=== PATIENT | female | born 1980 | race Caucasian/White ===

== ENCOUNTER 2017-05-30 05:11 | Emergency (ER) | payer BC ==
[2017-05-30 05:24] VITALS: BP 107/64
--- NOTE | 2017-05-30 05:44 | EDM.PDOC ---
ED HPI GENERAL MEDICAL PROBLEM - General Chief Complaint: Bite:Animal, Insect Stated Complaint: DOG BITE YESTERDAY Time Seen by Provider: 05/30/17 05:22 Source of Information: Reports: Patient History Limitations: Reports: No Limitations - History of Present Illness INITIAL COMMENTS - FREE TEXT/NARRATIVE: This is a 36-year-old female. She was seen at the occupational medicine clinic today due to a dog bite. She has bites to her left hand her right hand and also her left cheek. The other bites appear to be doing well and do not appear to be infected however the right middle finger she had 2 puncture wounds at the DIP joint on the dorsal and one on the volar surface that now appear to be infected. She has redness of that right middle finger and tenderness and she comes to the ER for evaluation. Right Middle 3-Middle finger Pain Score (Numeric/FACES): 7 - Related Data Allergies Allergy/AdvReac Type Severity Reaction Status Date / Time cephalexin monohydrate Allergy Intermediate Hives Verified 11/02/15 16:57 [From Keflex] Penicillins Allergy Intermediate Hives Verified 11/02/15 16:57 Home Meds: Home Meds Albuterol [Ventolin HFA] 2 puff INH Q4H PRN 01/17/15 [History] Budesonide/Formoterol [Symbicort 160-4.5 MCG] 1 puff PO BID PRN 01/17/15 [ History] Ciprofloxacin HCl [Cipro] 500 mg PO BID #14 tablet 05/30/17 [Rx] Clindamycin HCl 300 mg PO TID #21 capsule 05/30/17 [Rx] Cyclobenzaprine HCl [Cyclobenzaprine HCl] 10 mg PO Q6H PRN 05/30/17 [History] DULoxetine HCl [Duloxetine HCl] 60 mg PO DAILY 05/30/17 [History] Diazepam [Valium] 5 mg PO BEDTIME PRN 05/30/17 [History] traMADol HCl [Tramadol HCl] 50 mg PO Q6H PRN 05/30/17 [History] Past Medical History Respiratory History: Reports: Asthma Musculoskeletal History: Reports: Other (See Below) Other Musculoskeletal History: hip dysplasia - Past Surgical History Musculoskeletal Surgical History: Reports: Hip Replacement, Other (See Below) Other Musculoskeletal Surgeries/Procedures:: foot sx Social & Family History - Tobacco Use Smoking Status *Q: Never Smoker Second Hand Smoke Exposure: No - Recreational Drug Use Recreational Drug Use: No - Living Situation & Occupation Living situation: Reports: , Alone Occupation: Employed ED ROS GENERAL - Review of Systems Review Of Systems: See Below Constitutional: Denies: Fever, Chills HEENT: Reports: No Symptoms Respiratory: Reports: No Symptoms Cardiovascular: Reports: No Symptoms Endocrine: Reports: No Symptoms GI/Abdominal: Reports: No Symptoms : Reports: No Symptoms Musculoskeletal: Reports: Other (As per history of present illness) Skin: Reports: Other (As per history of present illness) Neurological: Reports: No Symptoms Psychiatric: Reports: No Symptoms Hematologic/Lymphatic: Reports: No Symptoms ED EXAM, ANIMAL BITE - Physical Exam Exam: See Below Exam Limited By: No Limitations General Appearance: Alert, WD/WN, No Apparent Distress Eye Exam: Bilateral Eye: Normal Inspection Ears: Normal External Exam Nose: Normal Inspection Throat/Mouth: Normal Inspection, Normal Lips, Normal Voice, Other (She has a symmetrical dog bite to the left cheek noted that does not appear to be infected ) Head: Normocephalic Neck: Supple Respiratory/Chest: No Respiratory Distress Back Exam: Full Range of Motion Extremities: Other (The left hand she has multiple dog bites that do not appear to be infected at this time, in the right hand the middle finger she has a puncture wound on the dorsal surface at the DIP joint and a puncture wound at the DIP joint on the volar surface and this is the finger that's inflamed and slightly swollen, due to the swelling she can't bend her DIP joint very well but she can bend her IP joint and MP joint though is somewhat swollen and tender there does not appear to be any tenosynovitis at this time) Neurological: Alert, Oriented Psychiatric: Normal Affect, Normal Mood Skin Exam: Normal Color Course - Vital Signs Last Recorded V/S: Last Vital Signs Temp 97.6 F 05/30/17 05:21 Pulse 71 05/30/17 05:21 Resp 16 05/30/17 05:21 BP 107/64 05/30/17 05:21 Pulse Ox 100 05/30/17 05:21 - Orders/Labs/Meds Meds: Medications Discontinued Medications Generic Name Dose Route Start Last Admin Trade Name Freq PRN Reason Stop Dose Admin Clindamycin HCl 300 mg 05/30/17 05:45 05/30/17 05:51 Cleocin PO 05/30/17 05:46 300 mg ONETIME ONE Administration Levofloxacin 500 mg 05/30/17 05:45 05/30/17 05:51 Levaquin PO 05/30/17 05:46 500 mg ONETIME ONE Administration - Re-Assessments/Exams Free Text/Narrative Re-Assessment/Exam: 05/30/17 05:53 Patient is started on tramadol and took Aleve tonight for the soreness in her finger. I'll provide the initial dose of clindamycin and fluoroquinolone as suggested by the [facility] antibiotic guide since the patient is allergic to penicillins. Departure - Departure Time of Disposition: 05:54 Disposition: Home, Self-Care 01 Condition: Good Clinical Impression: Puncture wound of right middle finger with complication, Cellulitis of right middle finger Dog bite of right hand Qualifiers: Encounter type: initial encounter Qualified Code(s): S61.451A - Open bite of right hand, initial encounter; W54.0XXA - Bitten by dog, initial encounter; W54.0XXA - Bitten by dog, initial encounter - Discharge Information Prescriptions: Ciprofloxacin HCl [Cipro] 500 mg PO BID #14 tablet Clindamycin HCl 300 mg PO TID #21 capsule Instructions: Animal Bite, [id number] Referrals: Gianna Freeman, RESIDENT PROGRAMS ASSISTANT [Primary Care Provider] - Forms: ED Department Discharge Additional Instructions: Get the antibiotics today from the pharmacy, also get some probiotics to take along with the antibiotics so they doesn't hurt your gut bacteria and just asked the pharmacist what is the best probiotics and how to take them, continue with your tramadol and the Aleve to help with the soreness of the finger, you may use heat to the finger if it makes it feel better, try to keep it elevated to ease up the throbbing, follow-up with the occupational medicine clinic on Thursday for recheck, if there's marked worsening of your symptoms or you run a fever greater than 102 return to the ER for recheck
[2017-05-30] MEDS ORDERED: Levofloxacin 250 MG Tab PO ONE (05:45)
[2017-05-30] MEDS ORDERED: Clindamycin HCl 150 MG Cap PO ONE (05:45)
== END 2017-05-30 06:05 | disposition home or self-care (01) ==
LOC: JD.ED 05:11
DX: S61.451A Open bite of right hand, initial encounter (principal); S61.232A Puncture wound without foreign body of right middle finger without damage to nail, initial encounter; L03.011 Cellulitis of right finger; Z88.0 Allergy status to penicillin; Z88.6 Allergy status to analgesic agent; Z79.899 Other long term (current) drug therapy; W54.0XXA Bitten by dog, initial encounter
CPT/HCPCS: 99283; A9270

== ENCOUNTER 2017-12-06 13:45 | Emergency (ER) | payer BC ==
[2017-12-06] MEDS ORDERED: LORazepam 2 MG/ML SDV IVPUSH ONE (14:24)
[2017-12-06] MEDS ORDERED: HYDROmorphone 0.5 MG/0.5 ML SYRINGE IVPUSH ONE ×2 (14:24→15:45)
[2017-12-06] MEDS ORDERED: Sodium Chloride 0.9% 10 ML Syringe FLUSH PRN (14:24)
--- NOTE | 2017-12-06 15:03 | EDM.PDOC ---
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 Her Hcg levels the last 10 days have been dropping. Her US about 10 days ago did not show heart activity. mild intermitant discomfort the last few days, became quite severe low mid pelvic the last 2 to 3 hours. has had very slight spotting the last few days. No chest or upper abd pain. Lower Pelvic Pain Score (Numeric/FACES): 7 - Related Data Allergies Allergy/AdvReac Type Severity Reaction Status Date / Time cephalexin monohydrate Allergy Intermediate Hives Verified 12/06/17 13:59 [From Keflex] Penicillins Allergy Intermediate Hives Verified 12/06/17 13:59 Home Meds: Home Meds Albuterol [Ventolin HFA] 2 puff INH Q4H PRN 01/17/15 [History] Budesonide/Formoterol [Symbicort 160-4.5 MCG] 1 puff PO BID PRN 01/17/15 [ History] Cyclobenzaprine HCl 10 mg PO Q6H PRN 05/30/17 [History] DULoxetine HCl [Duloxetine HCl] 60 mg PO DAILY 05/30/17 [History] Diazepam [Valium] 5 mg PO BEDTIME PRN 05/30/17 [History] traMADol HCl [Tramadol HCl] 50 mg PO Q6H PRN 05/30/17 [History] Loratadine [Claritin] 10 mg PO DAILY PRN 12/06/17 [History] Pnv No.95/Ferrous Fum/Folic AC [ Multivitamin Tablet] 1 tab PO DAILY 04/15 [History] Past Medical History Respiratory History: Reports: Asthma, Other (See Below) Other Respiratory History: seasonal allergies. 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: Musculoskeletal History: Reports: Other (See Below) Other Musculoskeletal History: hip dysplasia Psychiatric History: Reports: Addiction, Depression - Infectious Disease History Infectious Disease History: Reports: Chicken Pox, Shingles - Past Surgical History Musculoskeletal Surgical History: Reports: Hip Replacement, Other (See Below) Other Musculoskeletal Surgeries/Procedures:: foot sx Social & Family History - Tobacco Use Smoking Status *Q: Never Smoker Second Hand Smoke Exposure: No - Caffeine Use Caffeine Use: Reports: Coffee - Recreational Drug Use Recreational Drug Use: No - Living Situation & Occupation Living situation: Reports: , Alone Occupation: Employed ED ROS GENERAL - Review of Systems Review Of Systems: See Below Constitutional: Reports: No Symptoms HEENT: Reports: No Symptoms Respiratory: Denies: Shortness of Breath, Pleuritic Chest Pain Cardiovascular: Denies: Chest Pain GI/Abdominal: Reports: Abdominal Pain (low abd and pelvic pain, severe) : Reports: Other (intermitant mild spotting the last few days. ) Musculoskeletal: Denies: Back Pain Skin: Reports: No Symptoms ED EXAM - Physical Exam Exam: See Below General Appearance: Alert, Anxious, Severe Distress Eye Exam: Bilateral Eye: PERRL Throat/Mouth: Normal Inspection Head: Atraumatic. No: Facial Swelling Neck: Supple Respiratory/Chest: No Respiratory Distress, Lungs Clear, Normal Breath Sounds Cardiovascular: Regular Rate, Rhythm GI/Abdominal Exam: Tender (lower mid abd) (Female) Exam: Normal External Exam, Other (cervix is closed, very small amt of blood post vag vault, no clots or tissue) Extremities: Normal Inspection Neurological: Alert, Oriented Skin Exam: Warm, Dry, Normal Color Course - Vital Signs Last Recorded V/S: Last Vital Signs Temp 96.3 F 12/06/17 14:00 Pulse 96 12/06/17 15:24 Resp 16 12/06/17 15:24 BP 112/77 12/06/17 15:24 Pulse Ox 96 12/06/17 15:24 - Orders/Labs/Meds Orders: Active Orders 24 hr Category Date Time Status Peripheral IV Care [RC] . DIRECTED Care 12/06/17 14:25 Active TYPE AND SCREEN [BBK] Stat Lab 12/06/17 14:50 Received Sodium Chloride 0.9% [Saline Flush] Med 12/06/17 14:24 Active 10 ml FLUSH ASDIRECTED PRN Peripheral IV Insertion Adult [OM.PC] Stat Oth 12/06/17 14:24 Ordered Medication Orders Sodium Chloride (Saline Flush) 10 ml FLUSH ASDIRECTED PRN PRN Reason: Keep Vein Open Last Admin: 12/06/17 14:40 Dose: 10 ml Labs: Laboratory Tests 12/06/17 Range/Units 14:30 HCG, Quant 7653.0 mIU/mL Meds: Medications Generic Name Dose Route Start Last Admin Trade Name [place] PRN Reason Stop Dose Admin Sodium Chloride 10 ml 12/06/17 14:24 12/06/17 14:40 Saline Flush FLUSH 10 ml ASDIRECTED PRN Administration Keep Vein Open Discontinued Medications Generic Name Dose Route Start Last Admin Trade Name Freq PRN Reason Stop Dose Admin Hydromorphone HCl 0.5 mg 12/06/17 14:24 12/06/17 14:38 Dilaudid IVPUSH 12/06/17 14:25 0.5 mg ONETIME ONE Administration Hydromorphone HCl 0.5 mg 12/06/17 15:45 12/06/17 15:50 Dilaudid IVPUSH 12/06/17 15:46 0.5 mg ONETIME ONE Administration Lorazepam 0.5 mg 12/06/17 14:24 12/06/17 14:34 Ativan IVPUSH 12/06/17 14:25 0.5 mg ONETIME ONE Administration - Re-Assessments/Exams Free Text/Narrative Re-Assessment/Exam: 12/06/17 16:00 good relief of pain from dilaudid 0.5, ativan 0.5 IV. Pain starting to come back a bit, will give another 0.5 mg dilaudid prior to discharge, she has clinic appt. tomorrow including planned US. Departure - Departure Time of Disposition: 15:50 Disposition: Home, Self-Care 01 Condition: Fair Clinical Impression: Inevitable - Discharge Information Instructions: Miscarriage, [id number] Referrals: Gianna Freeman GLASS DEPOSITION TENDER [Primary Care Provider] - Forms: ED Department Discharge Additional Instructions: continue tylenol or tramadol for mild to moderate discomfort or hydrocodone if needed for more severe pain. See Dr Cash tomorrow as planned. Return to ED if symptoms worsening in any way, especially if soaking more than a pad per hour for more than 1 or 2 hrs. - My Orders Last 24 Hours: My Active Orders 12/06/17 14:24 Sodium Chloride 0.9% [Saline Flush] 10 ml FLUSH ASDIRECTED PRN Peripheral IV Insertion Adult [OM.PC] Stat 12/06/17 14:25 Peripheral IV Care [RC] . DIRECTED 12/06/17 14:50 TYPE AND SCREEN [BBK] Stat - Assessment/Plan Last 24 Hours: My Active Orders 12/06/17 14:24 Sodium Chloride 0.9% [Saline Flush] 10 ml FLUSH ASDIRECTED PRN Peripheral IV Insertion Adult [OM.PC] Stat 12/06/17 14:25 Peripheral IV Care [RC] . DIRECTED 12/06/17 14:50 TYPE AND SCREEN [BBK] Stat
[2017-12-06 15:25] VITALS: BP 112/77
== END 2017-12-06 15:59 | disposition home or self-care (01) ==
LOC: JD.ED 13:45
DX: O03.9 Complete or unspecified spontaneous abortion without complication (principal); Z88.1 Allergy status to other antibiotic agents; Z88.0 Allergy status to penicillin; Z79.899 Other long term (current) drug therapy
CPT/HCPCS: 36415; 84702; 86850; 86900; 86901; 96374; 96375; 96376; 99284; J1170; J2060; J7050

== ENCOUNTER 2017-12-08 08:14 | Day surgery (SDC) | payer BC ==
[~2017-12-08 08:14] MED LIST: Misoprostol 200 MCG Tab PO SCH
[2017-12-08] MEDS ORDERED: Lidocaine 1%/Sod Bicarbonate in NS 8.4% 1 ML Syringe IDERM ONE (09:02)
[2017-12-08] MEDS ORDERED: Sodium Chloride 0.9% 10 ML Syringe FLUSH PRN (09:03)
[2017-12-08] MEDS ORDERED: Lactated Ringers 1,000 ML IV SCH (09:15)
--- NOTE | 2017-12-08 09:21 | PCM.PREANE ---
Preanesthetic Assessment - Anesthesia/Transfusion/Family Hx Anesthesia History: Prior Anesthesia Without Reaction Family History of Anesthesia Reaction: No Transfusion History: No Prior Transfusion(s) - Review of Systems General: No Symptoms Pulmonary: No Symptoms Cardiovascular: No Symptoms Gastrointestinal: Abdominal Pain Neurological: No Symptoms Other: Reports: None - Physical Assessment NPO Status Date: 12/07/17 NPO Status Time: 23:00 Pulse: 67 O2 Sat by Pulse Oximetry: 100 Respiratory Rate: 16 Blood Pressure: 114/54 Temperature: 36.9 C Vital Signs: Last Vital Signs Temp 36.9 C 12/08/17 08:18 Pulse 67 12/08/17 08:18 Resp 16 12/08/17 08:18 BP 114/54 L 12/08/17 08:18 Pulse Ox 100 12/08/17 08:18 Height: 1.73 m Weight: 66.224 kg ASA Class: 2 Mental Status: Alert & Oriented x3 Dentition: Reports: Normal Dentition Thyro-Mental Finger Breadths: 3 Mouth Opening Finger Breadths: 3 ROM/Head Extension: Full Lungs: Clear to Auscultation, Normal Respiratory Effort Cardiovascular: Regular Rate, Regular Rhythm - Lab Values: Laboratory Last Values WBC 7.62 K/mm3 (3.98-10.04) 12/08/17 08:30 RBC 4.16 M/mm3 (3.98-5.22) 12/08/17 08:30 Hgb 12.8 gm/L (11.2-15.7) 12/08/17 08:30 Hct 37.9 % (34.1-44.9) 12/08/17 08:30 MCV 91.1 fl (79.4-94.8) 12/08/17 08:30 MCH 30.8 pg (25.6-32.2) 12/08/17 08:30 MCHC 33.8 g/dl (32.2-35.5) 12/08/17 08:30 RDW Std Deviation 41.9 fL (36.4-46.3) 12/08/17 08:30 Plt Count 266 K/mm3 (182-369) 12/08/17 08:30 MPV 10.9 fl (9.4-12.3) 12/08/17 08:30 Neut % (Auto) 72.6 % (34.0-71.1) H 12/08/17 08:30 Lymph % (Auto) 12.7 % (19.3-51.7) L 12/08/17 08:30 [place] % (Auto) 10.0 % (4.7-12.5) 12/08/17 08:30 Eos % (Auto) 4.2 (0.7-5.8) 12/08/17 08:30 Baso % (Auto) 0.4 % (0.1-1.2) 12/08/17 08:30 Neut # (Auto) 5.53 K/mm3 (1.56-6.13) 12/08/17 08:30 Lymph # (Auto) 0.97 K/mm3 (1.18-3.74) L 12/08/17 08:30 [place] # (Auto) 0.76 K/mm3 (0.24-0.36) H 12/08/17 08:30 Eos # (Auto) 0.32 K/mm3 (0.04-0.36) 12/08/17 08:30 Baso # (Auto) 0.03 K/mm3 (0.01-0.08) 12/08/17 08:30 Sodium 140 mEq/L (136-145) 12/08/17 08:30 Potassium 3.4 mEq/L (3.5-5.1) L 12/08/17 08:30 Chloride 103 mEq/L (98-107) 12/08/17 08:30 Carbon Dioxide 26 mEq/L (21-32) 12/08/17 08:30 Anion Gap 14.4 (5-15) 12/08/17 08:30 BUN 7 mg/dL (7-18) 12/08/17 08:30 Creatinine 0.7 mg/dL (0.55-1.02) 12/08/17 08:30 Est Cr Clr Drug Dosing 111.00 mL/min 12/08/17 08:30 Estimated GFR (MDRD) > 60 mL/min (>60) 12/08/17 08:30 BUN/Creatinine Ratio 10.0 (14-18) L 12/08/17 08:30 Glucose 91 mg/dL (74-106) 12/08/17 08:30 Calcium 8.8 mg/dL (8.5-10.1) 12/08/17 08:30 Total Bilirubin 0.5 mg/dL (0.2-1.0) 12/08/17 08:30 AST 16 U/L (15-37) 12/08/17 08:30 ALT 28 U/L (14-59) 12/08/17 08:30 Alkaline Phosphatase 43 U/L (46-116) L 12/08/17 08:30 Total Protein 8.0 g/dl (6.4-8.2) 12/08/17 08:30 Albumin 4.0 g/dl (3.4-5.0) 12/08/17 08:30 Globulin 4.0 gm/dL 12/08/17 08:30 Albumin/Globulin Ratio 1.0 (1-2) 12/08/17 08:30 - Allergies Allergies/Adverse Reactions: Allergies Allergy/AdvReac Type Severity Reaction Status Date / Time cephalexin monohydrate Allergy Intermediate Hives Verified 12/06/17 13:59 [From Keflex] Penicillins Allergy Intermediate Hives Verified 12/06/17 13:59 - Anesthesia Plan Pre-Op Medication Ordered: None - Acknowledgements Anesthesia Type Planned: General Anesthesia Pt an Appropriate Candidate for the Planned Anesthesia: Yes Alternatives and Risks of Anesthesia Discussed w Pt/Guardian: Yes Pt/Guardian Understands and Agrees with Anesthesia Plan: Yes PreAnesthesia Questionnaire Respiratory History: Reports: Asthma, Other (See Below) Other Respiratory History: seasonal allergies. 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: Musculoskeletal History: Reports: Other (See Below) Other Musculoskeletal History: hip dysplasia Psychiatric History: Reports: Addiction, Depression - Infectious Disease History Infectious Disease History: Reports: Chicken Pox, Shingles - Past Surgical History Musculoskeletal Surgical History: Reports: Hip Replacement, Other (See Below) Other Musculoskeletal Surgeries/Procedures:: foot sx - SUBSTANCE USE Smoking Status *Q: Former Smoker Tobacco Use Within Last Twelve Months: No Second Hand Smoke Exposure: No Days Per Week of Alcohol Use: 0 Number of Drinks Per Day: 0 Total Drinks Per Week: 0 Recreational Drug Use History: No - HOME MEDS Home Medications: Home Meds Albuterol [Ventolin HFA] 2 puff INH Q4H PRN 01/17/15 [History] Budesonide/Formoterol [Symbicort 160-4.5 MCG] 1 puff PO BID PRN 01/17/15 [ History] Cyclobenzaprine HCl 10 mg PO Q6H PRN 05/30/17 [History] DULoxetine HCl [Duloxetine HCl] 60 mg PO DAILY 05/30/17 [History] Diazepam [Valium] 5 mg PO BEDTIME PRN 05/30/17 [History] traMADol HCl [Tramadol HCl] 50 mg PO Q6H PRN 05/30/17 [History] Loratadine [Claritin] 10 mg PO DAILY PRN 12/06/17 [History] Pnv No.95/Ferrous Fum/Folic AC [ Multivitamin Tablet] 1 tab PO DAILY 04/15 [History] - CURRENT (IN HOUSE) MEDS Current Meds: Current Medications Lactated Ringer's (Ringers, Lactated) 1,000 mls @ 125 mls/hr IV ASDIRECTED JEANMARIE Last Admin: 12/08/17 08:35 Dose: 125 mls/hr Misoprostol (Cytotec) 800 mcg PO ONETIME [facility] Last Admin: 12/08/17 08:20 Dose: 800 mcg Sodium Chloride (Saline Flush) 10 ml FLUSH ASDIRECTED PRN PRN Reason: Keep Vein Open Discontinued Medications Lidocaine/Sodium Bicarbonate (Buffered Lidocaine 1% In Ns 8.4%) 0.25 ml IDERM ONETIME ONE Stop: 12/08/17 09:03 Last Admin: 12/08/17 08:35 Dose: 0.25 ml
[2017-12-08] MEDS ORDERED: Doxycycline 100 MG Cap PO ONE (09:24)
[2017-12-08] MEDS ORDERED: Propofol 200 MG/20 ML SDV ONE (09:25)
[2017-12-08] MEDS ORDERED: Ondansetron 4 MG/2 ML SDV ONE (09:25)
[2017-12-08] MEDS ORDERED: fentaNYL 100 MCG/2 ML SDV ONE (09:26)
[2017-12-08] MEDS ORDERED: Lidocaine 1% 4 ML ONE (09:26)
[2017-12-08] MEDS ORDERED: Midazolam 1 MG/ML 2 ML SDV ONE (09:26)
[2017-12-08] MEDS ORDERED: Ketorolac 30 MG/ML SDV ONE (09:45)
[2017-12-08] MEDS ORDERED: Oxytocin 10 Units/1 ML SDV ONE (09:49)
[2017-12-08] MEDS ORDERED: fentaNYL 100 MCG/2 ML SDV IVPUSH PRN (10:09)
--- NOTE | 2017-12-08 10:10 | PCM.POSTAN ---
POST ANESTHESIA ASSESSMENT - MENTAL STATUS Mental Status: Alert, Oriented - VITAL SIGNS Pulse Rate: 56 SaO2: 99 Resp Rate: 8 Blood Pressure: 107/62 Temperature: 36.8 C - RESPIRATORY Respiratory Status: Respiratory Rate WNL, Airway Patent, O2 Saturation Stable, Supplemental Oxygen - CARDIOVASCULAR CV Status: Pulse Rate WNL, Blood Pressure Stable - GASTROINTESTINAL GI Status: No Symptoms - PAIN Pain Score: 0 - POST OP HYDRATION Hydration Status: Adequate & Stable - OBSERVATIONS Free Text/Narrative:: no anesthesia complications noted
[2017-12-08] MEDS ORDERED: HYDROmorphone 0.5 MG/0.5 ML Syringe IVPUSH PRN (10:15)
--- NOTE | 2017-12-08 10:21 | PCM.OPNOTE ---
- General Post-Op/Procedure Note Date of Surgery/Procedure: 12/08/17 Operative Procedure(s): Suction dilatation and curettage for missed Pre Op Diagnosis: Missed Post-Op Diagnosis: Same Anesthesia Technique: General ET Tube Primary Surgeon: Freedom Cash Secondary Surgeon: Casey Fulton Anesthesia Provider: Nestor Ferreira Reason Registered Radiographer Was Necessary: Assist with running ultrasound to confirm empty endometrial cavity after completion of the suction curettage. Role of Registered Radiographer: Assist with running ultrasound to confirm empty endometrial cavity after completion of the suction curettage. Fluid Replacement, Intraop: 1,000 EBL in mLs: 25 Drain/Tube Comments:: None Complications: None Condition: Good Free Text/Narrative:: Patient was transported to the operating room and placed under general anesthesia with endotracheal intubation the low dorsal lithotomy position. Prepared and draped in a sterile fashion. Timeout performed confirming name, date of and procedure as suction curettage for missed . Examination under anesthesia revealed 6/7 weeks size uterus no adnexal masses. Utilizing dilators the cervix was carefully dilated after sounding the uterus to 7.5 cm. Inserting curved #7 and subsequently #8 cannula suction curettage was performed removing all tissue seen on ultrasound. Utilizing forceps additional tissue from the lower uterine segment was removed and all tissue sent to pathology for tissue evaluation. Blood type is O+. No blood transfusions were required. Patient has follow-up appointment in the clinic in 2 weeks and will obtain quantitative beta-hCG at that time as well. Pelvic rest for 6 weeks. Sponge pack and instrument counts correct patient transported postanesthesia care unit in satisfactory condition. After surgery and postanesthesia care unit talked with the patient and her concerning the findings all questions answered voiced satisfaction.
[2017-12-08 11:56] VITALS: BP 105/54
== END 2017-12-08 11:51 | disposition home or self-care (01) ==
LOC: JD.SDS 08:14
PROVIDERS: ATTEND Obstetrics & Gynecology
DX: O02.1 Missed abortion (principal); J45.901 Unspecified asthma with (acute) exacerbation; F32.9 Major depressive disorder, single episode, unspecified; Z87.891 Personal history of nicotine dependence; Z79.51 Long term (current) use of inhaled steroids; Z88.1 Allergy status to other antibiotic agents; Z88.0 Allergy status to penicillin
CPT/HCPCS: 36415; 59820; 80053; 85025; 86850; 86900; 86901; A9270; J1885; J2001; J2250; J2405; J2590; J3010; J7120; 01965; J2704

== ENCOUNTER 2019-08-19 03:00 | Inpatient (IN) | payer BC ==
[2019-08-19] MEDS ORDERED: Dextrose 5%-Lactated Ringers 1,000 ML IV SCH ×2 (04:00→06:00)
[2019-08-19] MEDS ORDERED: Oxytocin/Lactated Ringers 20 UNIT/1,000 ML BAG IV SCH (07:15)
[2019-08-19] MEDS ORDERED: Oxytocin/Lactated Ringers 10 UNIT/1,000 ML BAG IV SCH (07:15)
--- NOTE | 2019-08-19 07:36 | PCM.PREANE ---
Preanesthetic Assessment - Anesthesia/Transfusion/Family Hx Anesthesia History: Prior Anesthesia Without Reaction Family History of Anesthesia Reaction: No Transfusion History: No Prior Transfusion(s) Intubation History: Unknown - Review of Systems General: No Symptoms Pulmonary: No Symptoms (Asthma-last used inhaler yesterday) Cardiovascular: No Symptoms (History of high vagal tone.), Dyspnea on Exertion ( with ), Lightheadedness (positional changes) Gastrointestinal: No Symptoms (GERD with ) Neurological: No Symptoms (History of hip dysplasia/bilateral hip replacement surgery noted) Other: Reports: Sinus Problem (seasonal allergies), Neck Pain, Depression, Anxiety - Physical Assessment NPO Status Date: 08/19/19 NPO Status Time: 08:45 Vital Signs: Last Vital Signs Temp 37.0 C 08/19/19 03:54 Pulse 67 08/19/19 03:54 Resp 16 08/19/19 03:54 BP 135/68 08/19/19 03:54 Pulse Ox 98 08/19/19 03:54 Height: 1.73 m Weight: 90.9 kg ASA Class: 2 Mental Status: Alert & Oriented x3 Airway Class: Mallampati = 2 Dentition: Reports: Normal Dentition, Caries Thyro-Mental Finger Breadths: 3 Mouth Opening Finger Breadths: 3 ROM/Head Extension: Full Lungs: Clear to Auscultation, Normal Respiratory Effort Cardiovascular: Regular Rate, Regular Rhythm, No Murmurs - Lab Values: All labs reviewed and noted and within acceptable ranges to proceed with epidural if desired. - Allergies Allergies/Adverse Reactions: Allergies Allergy/AdvReac Type Severity Reaction Status Date / Time cephalexin monohydrate Allergy Intermediate Hives Verified 08/19/19 03:54 [From Keflex] Penicillins Allergy Intermediate Hives Verified 08/19/19 03:54 - Anesthesia Plan Pre-Op Medication Ordered: None - Acknowledgements Anesthesia Type Planned: Epidural Pt an Appropriate Candidate for the Planned Anesthesia: Yes Alternatives and Risks of Anesthesia Discussed w Pt/Guardian: Yes Pt/Guardian Understands and Agrees with Anesthesia Plan: Yes PreAnesthesia Questionnaire Respiratory History: Reports: Asthma, Other (See Below) Other Respiratory History: seasonal allergies. 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: Musculoskeletal History: Reports: Other (See Below) Other Musculoskeletal History: hip dysplasia Psychiatric History: Reports: Addiction, Anxiety, Depression - Infectious Disease History Infectious Disease History: Reports: Chicken Pox, Shingles - Past Surgical History Female Surgical History: Reports: D&C Musculoskeletal Surgical History: Reports: Hip Replacement, Other (See Below) Other Musculoskeletal Surgeries/Procedures:: foot sx - HOME MEDS Home Medications: Home Meds Albuterol [Ventolin HFA] 2 puff INH Q4H PRN 01/17/15 [History] Budesonide/Formoterol [Symbicort 160-4.5 MCG] 1 puff PO BID PRN 01/17/15 [ History] Pnv No.95/Ferrous Fum/Folic AC [ Multivitamin Tablet] 1 tab PO DAILY 04/15 [History] Acetaminophen [Tylenol] 650 mg PO Q6H #50 tablet 12/08/17 [Rx] - CURRENT (IN HOUSE) MEDS Current Meds: Current Medications Lactated Ringer's (Ringers, Lactated) 1,000 mls @ 125 mls/hr IV ASDIRECTED JEANMARIE Oxytocin/Lactated Ringer's (Pitocin In Lr 10 Units/1,000 Ml) 10 unit in 1,000 mls @ 12 mls/hr IV TITRATE JEANMARIE; Protocol Oxytocin/Lactated Ringer's (Pitocin In Lr 20 Units/1,000 Ml) 20 unit in 1,000 mls @ 500 mls/hr IV .CONTINUOUS JEANMARIE Misoprostol (Cytotec) 50 mcg VAG Q4HR JEANMARIE Discontinued Medications Dextrose/Lactated Ringer's (Dextrose 5%-Lactated Ringers) 1,000 mls @ 250 mls/ hr IV ASDIRECTED JEANMAREI Stop: 08/19/19 06:00 Dextrose/Lactated Ringer's (Dextrose 5%-Lactated Ringers) 1,000 mls @ 150 mls/ hr IV ASDIRECTED JEANMARIE Stop: 08/19/19 07:00
[2019-08-19] MEDS ORDERED: Albuterol 0.083% 2.5 MG/3 ML Neb Soln NEB PRN (07:37)
[2019-08-19] MEDS ORDERED: ePHEDrine 50 MG/ML SDV IVPUSH PRN (07:37)
[2019-08-19] MEDS ORDERED: Ondansetron 4 MG/2 ML SDV IVPUSH PRN (07:37)
[2019-08-19] MEDS ORDERED: Bupivacaine/fentaNYL/NS 100 ML Bag EPIDUR SCH (07:45)
[2019-08-19] MEDS ORDERED: Phenylephrine 1 MG in Sodium Chloride 0.9% 10 ML IV SCH (07:45)
[2019-08-19] MEDS: Misoprostol 25 MCG (1/4 of 100 MCG) Tab VAG SCH ×2 (07:53→12:56)
--- NOTE | 2019-08-19 08:14 | US ---
Biophysical profile: Multiple real-time images were obtained. Dates: LMP: LMP given as 11/17/18, JOVANNA 08/24/19, gestational age 39 weeks 2 days Current ultrasound: JOVANNA 08/24/19, gestational age 39 weeks 2 days Earliest ultrasound (11/10/18): JOVANNA 08/24/19, gestational age 39 weeks 2 days presentation: Cephalic Placenta: Anterior Amniotic fluid: ABBY 17.4 cm Measurements: BPD: 9.64 cm - 39 weeks 3 days Head circumference: 34.04 cm - 39 weeks 2 days Abdominal circumference: 34.75 cm - 38 weeks 5 days Femur length: 7.75 cm - 39 weeks 5 days Estimated weight: 3666 g (8 lbs. 1 oz.), estimated weight 66th percentile for age by ultrasound and age by LMP Heart rate: 144 bpm Cervical length: Not seen, not measured Growth curves: Various growth parameters are round the mean percentile. Growth is felt to be appropriate from prior exams. Biophysical profile: movement 2, breathing movement 2, tone 2, amniotic fluid volume 2 Impression: 1. Single intrauterine fetus currently cephalic in presentation. Dates as noted above. 2. growth appropriate from prior studies. 3. 8 out of 8 on biophysical profile. Diagnostic code #1 This report was dictated in [place] Standard Time
[2019-08-19] MEDS: Lactated Ringers 1,000 ML IV SCH ×3 (08:17→15:48)
--- NOTE | 2019-08-19 09:30 | PCM.LDHP ---
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 No gush of fluid. NST initially not reactive. BPP 02/03 at 0700 approximately. Cervix had changed since arrival in L&D. Amniotomy performed at 0900 meconium stained amniotic fluid. FHT at present Cat I 140's. Initial ultrasound 02/02/2019 7 weeks 5 days estimated date of confinement concurrent with LMP JOVANNA of 08/24/2019 Group B strep negative 02/02/2019 blood type O-positive, antibody screen negative, hemoglobin/hematocrit 12.1/35.7 platelets 304,000. Rubella immune. Serology nonreactive. Urine culture mixed jamie suggestive of contamination. Hepatitis B surface antigen negative. GC and chlamydia probe negative. 06/08/19 :/Hematocrit 13.3/38.5 platelets 288,001 hour OB glucose screen 81 serology nonreactive. 08/01/2019 group B strep negative. Patient is allergic to cephalexin and penicillins if section is necessary will use clindamycin 900 mg and gentamicin 5 mg/kg as prophylaxis antibiotics. Improves with: Reports: None Worsens with: Reports: None Associated Symptoms: Reports: N - Related Data Allergies/Adverse Reactions: Allergies Allergy/AdvReac Type Severity Reaction Status Date / Time cephalexin monohydrate Allergy Intermediate Hives Verified 08/19/19 03:54 [From Keflex] Penicillins Allergy Intermediate Hives Verified 08/19/19 03:54 Home Medications: Home Meds Albuterol [Ventolin HFA] 2 puff INH Q4H PRN 01/17/15 [History] Budesonide/Formoterol [Symbicort 160-4.5 MCG] 1 puff PO BID PRN 01/17/15 [ History] Pnv No.95/Ferrous Fum/Folic AC [ Multivitamin Tablet] 1 tab PO DAILY 04/15 [History] Acetaminophen [Tylenol] 650 mg PO Q6H #50 tablet 12/08/17 [Rx] Past Medical History Respiratory History: Reports: Asthma, Other (See Below) Other Respiratory History: seasonal allergies. 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: Musculoskeletal History: Reports: Other (See Below) Other Musculoskeletal History: hip dysplasia Psychiatric History: Reports: Addiction, Anxiety, Depression - Infectious Disease History Infectious Disease History: Reports: Chicken Pox, Shingles - Past Surgical History Female Surgical History: Reports: D&C Musculoskeletal Surgical History: Reports: Hip Replacement, Other (See Below) Other Musculoskeletal Surgeries/Procedures:: foot sx Social & Family History - Family History Family Medical History: Noncontributory - Caffeine Use Caffeine Use: Reports: Coffee - Living Situation & Occupation Living situation: Reports: , Alone Occupation: Employed H&P Review of Systems - Review of Systems: Review Of Systems: See Below General: Reports: No Symptoms HEENT: Reports: No Symptoms Pulmonary: Reports: No Symptoms Cardiovascular: Reports: No Symptoms Gastrointestinal: Reports: No Symptoms Genitourinary: Reports: No Symptoms Musculoskeletal: Reports: No Symptoms Skin: Reports: No Symptoms Psychiatric: Reports: No Symptoms Neurological: Reports: No Symptoms Hematologic/Lymphatic: Reports: No Symptoms Immunologic: Reports: No Symptoms L&D Exam - Exam Exam: See Below - Vital Signs Vital Signs: Last Vital Signs Temp 98.6 F 08/19/19 03:54 Pulse 67 08/19/19 03:54 Resp 16 08/19/19 03:54 BP 135/68 08/19/19 03:54 Pulse Ox 98 08/19/19 03:54 Weight: 200 lb 6.4 oz - OB Specific Fundal Height In cm: 39 Contraction Intensity: Moderate Movement: Active Heart Tones: Present Heart Tones per Min: 140 Heart Rate (FHR) Variability: Moderate (6-25 bmp) Presentation: Vertex - Elise Score Elise Score Cervix Position: Anterior Elise Score Consistency: Soft Elise Score Effacement: >80% Elise Score Dilation: 3-4 cm Elise Score Infant's Station: -1 ,0 Elise Score Total: 11 - Exam General: Alert, Oriented HEENT: Conjunctiva Clear, Mucosa Moist & [place] Neck: Supple, Trachea Midline Lungs: Clear to Auscultation, Normal Respiratory Effort Cardiovascular: Regular Rate, Regular Rhythm GI/Abdominal Exam: Normal Bowel Sounds, Soft, Non-Tender Genitourinary: Normal external exam Extremities: Normal Inspection, Non-Tender, No Pedal Edema, Normal Capillary Refill Skin: Warm, Dry, Intact Psychiatric: Alert, Normal Affect, Normal Mood - Patient Data Lab Results Last 24 hrs: Laboratory Results - last 24 hr 08/19/19 08/19/19 Range/Units 07:37 07:37 WBC 10.01 (3.98-10.04) K/mm3 RBC 4.07 (3.98-5.22) M/mm3 Hgb 12.3 (11.2-15.7) gm/dl Hct 37.0 (34.1-44.9) % MCV 90.9 (79.4-94.8) fl MCH 30.2 (25.6-32.2) pg MCHC 33.2 (32.2-35.5) g/dl RDW Std Deviation 41.8 (36.4-46.3) fL Plt Count 319 (182-369) K/mm3 MPV 11.0 (9.4-12.3) fl Blood Type O POSITIVE Gel Antibody Screen Negative Result Diagrams: 08/19/19 07:37 - Problem List (1) 39 weeks gestation of SNOMED Code(s): 76382907 ICD Code: Z3A.39 - 39 WEEKS GESTATION OF Status: Acute Current Visit: Yes (2) Meconium in amniotic fluid affecting management of mother SNOMED Code(s): 58307656 ICD Code: O36.8990 - MATERNAL CARE FOR OTH PROBLEMS, UNSP TRIMESTER, UNSP Status: Acute Current Visit: Yes Qualifiers: Fetus number: single or unspecified fetus (3) AMA (advanced maternal age) multigravida 35+ SNOMED Code(s): 135302414 ICD Code: O09.529 - SUPERVISION OF ELDERLY MULTIGRAVIDA, UNSPECIFIED TRIMESTER Status: Acute Current Visit: Yes Qualifiers: Trimester: third trimester Qualified Code(s): O09.523 - Supervision of elderly multigravida, third trimester Problem List Initiated/Reviewed/Updated: No Orders Last 24hrs: Active Orders 24 hr Category Date Time Status Patient Status [ADT] Routine ADT 08/19/19 07:14 Active Activity as Tolerated [RC] PFP Care 08/19/19 07:14 Active Communication Order [RC] ASDIRECTED Care 08/19/19 07:14 Active Heart Tones [RC] ASDIRECTED Care 08/19/19 07:15 Active Non Stress Test [RC] PER UNIT ROUTINE Care 08/19/19 03:54 Active Notify Provider [RC] ASDIRECTED Care 08/19/19 07:33 Active Notify Provider [RC] PFP Care 08/19/19 07:14 Active Notify Provider [RC] PRN Care 08/19/19 07:14 Active Pulse Oximetry [RC] ASDIRECTED Care 08/19/19 07:33 Active RT Aerosol Therapy [RC] ASDIRECTED Care 08/19/19 07:37 Active Urinary Catheter Assessment [RC] ASDIRECTED Care 08/19/19 07:14 Active Vital Signs [RC] PER UNIT ROUTINE Care 08/19/19 03:54 Active Vital Signs [RC] PER UNIT ROUTINE Care 08/19/19 07:14 Active Regular Diet [DIET] Diet 08/19/19 Breakfast Active RAPID PLASMA REAGIN,RPR [CHEM] Routine Lab 08/19/19 07:37 Received Albuterol [Proventil Neb Soln] Med 08/19/19 07:37 Active 2.5 mg NEB ONETIME PRN Bupivacaine/fentaNYL/NS [fentaNYL/Bupivacaine/NS 2 MCG- Med 08/19/19 07:45 Active 0.125% 100 ML] 100 ml EPIDUR ASDIRECTED Lactated Ringers [Ringers, Lactated] 1,000 ml Med 08/19/19 07:15 Active IV ASDIRECTED Ondansetron [Zofran] Med 08/19/19 07:37 Active 4 mg IVPUSH ONETIME PRN Oxytocin/Lactated Ringers [Pitocin in LR 10 Units/1,000 Med 08/19/19 07:15 Active ML] 10 unit in 1,000 ml IV TITRATE Oxytocin/Lactated Ringers [Pitocin in LR 20 Units/1,000 Med 08/19/19 07:15 Active ML] 20 unit in 1,000 ml IV .CONTINUOUS Phenylephrine [Keegan-Synephrine] 1 mg Med 08/19/19 07:45 Active Sodium Chloride 0.9% [Normal Saline] 10 ml IV TITRATE ePHEDrine [ePHEDrine sulfate] Med 08/19/19 07:37 Active 5 mg IVPUSH ASDIRECTED PRN fentaNYL [Sublimaze] Med 08/19/19 07:37 Active 100 mcg EPIDUR Q3H PRN miSOPROStoL [Cytotec] Med 08/19/19 09:00 Active 50 mcg VAG Q4HR Electronic Heart Tones Ext w TOCO [WOMSER] Oth 08/19/19 07:14 Ordered Routine Electronic Heart Tones Internal [WOMSER] Per Unit Ot 08/19/19 07:14 Ordered Routine Resuscitation Status Routine Resus Stat 08/19/19 03:54 Ordered Medication Orders Albuterol (Proventil Neb Soln) 2.5 mg NEB ONETIME PRN PRN Reason: asthma Ephedrine Sulfate (Ephedrine Sulfate) 5 mg IVPUSH ASDIRECTED PRN PRN Reason: Hypotension Fentanyl (Sublimaze) 100 mcg EPIDUR Q3H PRN PRN Reason: Pain Fentanyl/Bupivacaine HCl (Fentanyl/Bupivacaine/Ns 2 Mcg-0.125% 100 Ml) 100 ml EPIDUR ASDIRECTED JEANMARIE Lactated Ringer's (Ringers, Lactated) 1,000 mls @ 125 mls/hr IV ASDIRECTED JEANMARIE Last Admin: 08/19/19 08:17 Dose: 125 mls/hr Oxytocin/Lactated Ringer's (Pitocin In Lr 10 Units/1,000 Ml) 10 unit in 1,000 mls @ 12 mls/hr IV TITRATE JEANMARIE; Protocol Last Titration: 08/19/19 09:04 Dose: 4 munits/min, 24 mls/hr Admin: 08/19/19 08:20 Dose: 2 munits/min, 12 mls/hr Oxytocin/Lactated Ringer's (Pitocin In Lr 20 Units/1,000 Ml) 20 unit in 1,000 mls @ 500 mls/hr IV .CONTINUOUS JEANMARIE Phenylephrine HCl 1 mg/ Sodium (Chloride) 10.1 mls @ 1 mls/sec IV TITRATE JEANMARIE; Protocol Misoprostol (Cytotec) 50 mcg VAG Q4HR JEANMARIE Ondansetron HCl (Zofran) 4 mg IVPUSH ONETIME PRN PRN Reason: Nausea/Vomiting Assessment/Plan Comment:: Plan delivery Consent obtained for case needed an emergency.
[2019-08-19] MEDS: fentaNYL 100 MCG/2 ML SDV EPIDUR PRN ×2 (09:50→13:24)
[2019-08-19] MEDS ORDERED: diphenhydrAMINE 50 MG/ML SDV IVPUSH ONE (12:57)
[2019-08-19] MEDS ORDERED: Clindamycin Phosphate in D5W 900 MG in Premix Bag 1 BAG IV ONE ×2 (12:57)
--- NOTE | 2019-08-19 14:49 | PCM.SN ---
- Free Text/Narrative Note: 1445 hrs. cervix is 9 cm dilated with a slight rim on the patient's right side 100% effaced soft anterior cephalic presentation 0 station. We will begin pushing at approximately 1500 hrs. Pitocin at 10 MIUs per minute at present time. Patient had repeat epidural and has had much better relief with that.
--- NOTE | 2019-08-19 16:52 | PCM.DEL ---
L & D Note - General Info Date of Service: 08/19/19 Mother's Due Date: 08/24/19 - Delivery Note Labor: Spontaneous, Augmented by ARM, Augmented by Oxytocin Delivery Outcome: Livebirth (male liveborn Thursday08/19/2019 at 1629 ALLISON APGARs 8/9) Infant Delivery Method: Spontaneous Vaginal Delivery-Single Infant Delivery Mode: Spontaneous Presentation: Left Occiput Anterior (ALLISON) Nuchal Cord: None Prep: Povidone-Iodine (Betadine Anesthesia Type: Epidural Amniotic Fluid Description: Meconium Stained Episiotomy Type: None Laceration: 2nd Degree Suture type: Other (monocryl) Suture size: 3-0 Placenta: Intact, Spontaneous ([id number]/19/[address] [facility]) Cord: 3 Vessels Provider: Freedom Cash Score 1 min: 8 Score 5 min: 9 - General Info Date of Service: 08/19/19 Functional Status: Reports: Pain Controlled - Review of Systems General: Reports: No Symptoms HEENT: Reports: No Symptoms Pulmonary: Reports: No Symptoms Cardiovascular: Reports: No Symptoms Gastrointestinal: Reports: No Symptoms Genitourinary: Reports: No Symptoms Musculoskeletal: Reports: No Symptoms Skin: Reports: No Symptoms Neurological: Reports: No Symptoms Psychiatric: Reports: No Symptoms - Patient Data Vitals - Most Recent: Last Vital Signs Temp 98.6 F 08/19/19 03:54 Pulse 76 08/19/19 11:01 Resp 16 08/19/19 03:54 BP 137/84 08/19/19 11:01 Pulse Ox 100 08/19/19 09:46 Weight - Most Recent: 200 lb 6.4 oz Lab Results Last 24 Hours: Laboratory Results - last 24 hr 08/19/19 08/19/19 Range/Units 07:37 07:37 WBC 10.01 (3.98-10.04) K/mm3 RBC 4.07 (3.98-5.22) M/mm3 Hgb 12.3 (11.2-15.7) gm/dl Hct 37.0 (34.1-44.9) % MCV 90.9 (79.4-94.8) fl MCH 30.2 (25.6-32.2) pg MCHC 33.2 (32.2-35.5) g/dl RDW Std Deviation 41.8 (36.4-46.3) fL Plt Count 319 (182-369) K/mm3 MPV 11.0 (9.4-12.3) fl Blood Type O POSITIVE Gel Antibody Screen Negative Med Orders - Current: Current Medications Albuterol (Proventil Neb Soln) 2.5 mg NEB ONETIME PRN PRN Reason: asthma Ephedrine Sulfate (Ephedrine Sulfate) 5 mg IVPUSH ASDIRECTED PRN PRN Reason: Hypotension Fentanyl (Sublimaze) 100 mcg EPIDUR Q3H PRN PRN Reason: Pain Last Admin: 08/19/19 13:24 Dose: 100 mcg Fentanyl/Bupivacaine HCl (Fentanyl/Bupivacaine/Ns 2 Mcg-0.125% 100 Ml) 100 ml EPIDUR ASDIRECTED JEANMARIE Last Admin: 08/19/19 09:51 Dose: 100 ml Gentamicin Sulfate (Pharmacy To Dose - Gentamicin) 1 dose .XX ASDIRECTED PRN PRN Reason: proplylactic Lactated Ringer's (Ringers, Lactated) 1,000 mls @ 125 mls/hr IV ASDIRECTED JEANMARIE Last Admin: 08/19/19 15:48 Dose: 125 mls/hr Oxytocin/Lactated Ringer's (Pitocin In Lr 10 Units/1,000 Ml) 10 unit in 1,000 mls @ 12 mls/hr IV TITRATE JEANMARIE; Protocol Last Titration: 08/19/19 15:42 Dose: 14 munits/min, 84 mls/hr Oxytocin/Lactated Ringer's (Pitocin In Lr 20 Units/1,000 Ml) 20 unit in 1,000 mls @ 500 mls/hr IV .CONTINUOUS JEANMARIE Phenylephrine HCl 1 mg/ Sodium (Chloride) 10.1 mls @ 1 mls/sec IV TITRATE JEANMARIE; Protocol Misoprostol (Cytotec) 50 mcg VAG Q4HR JEANMARIE Last Admin: 08/19/19 12:56 Dose: Not Given Ondansetron HCl (Zofran) 4 mg IVPUSH ONETIME PRN PRN Reason: Nausea/Vomiting Discontinued Medications Diphenhydramine HCl (Benadryl) 25 mg IVPUSH ONETIME ONE Stop: 08/19/19 12:58 Dextrose/Lactated Ringer's (Dextrose 5%-Lactated Ringers) 1,000 mls @ 250 mls/ hr IV ASDIRECTED JEANMARIE Stop: 08/19/19 06:00 Dextrose/Lactated Ringer's (Dextrose 5%-Lactated Ringers) 1,000 mls @ 150 mls/ hr IV ASDIRECTED [facility] Stop: 08/19/19 07:00 Clindamycin Phosphate 900 mg/ (Premix) 50 mls @ 100 mls/hr IV ONETIME ONE Stop: 08/19/19 13:26 Gentamicin Sulfate 455 mg/ (Sodium Chloride) 111.375 mls @ 111.375 mls/hr IV ONETIME ONE Stop: 08/19/19 14:14 - Exam General: Alert, Oriented HEENT: Pupils Equal, Mucous Membr. Moist/[place] Neck: Supple Lungs: Clear to Auscultation, Normal Respiratory Effort Cardiovascular: Regular Rate, Regular Rhythm GI/Abdominal Exam: Normal Bowel Sounds, Soft, Non-Tender (Female) Exam: Normal External Exam Extremities: Normal Inspection, Non-Tender, No Pedal Edema, Normal Capillary Refill Skin: Warm, Dry, Intact Psy/Mental Status: Alert, Normal Affect, Normal Mood - Problem List & Annotations (1) 39 weeks gestation of SNOMED Code(s): 07811927 Code(s): Z3A.39 - 39 WEEKS GESTATION OF Status: Acute Current Visit: Yes (2) Meconium in amniotic fluid affecting management of mother SNOMED Code(s): 48901233 Code(s): O36.8990 - MATERNAL CARE FOR OTH PROBLEMS, UNSP TRIMESTER, UNSP Status: Acute Current Visit: Yes Qualifiers: Fetus number: single or unspecified fetus (3) AMA (advanced maternal age) multigravida 35+ SNOMED Code(s): 080622497 Code(s): O09.529 - SUPERVISION OF ELDERLY MULTIGRAVIDA, UNSPECIFIED TRIMESTER Status: Acute Current Visit: Yes Qualifiers: Trimester: third trimester Qualified Code(s): O09.523 - Supervision of elderly multigravida, third trimester (4) Second degree perineal laceration during delivery SNOMED Code(s): 3941553 Code(s): O70.1 - SECOND DEGREE PERINEAL LACERATION DURING DELIVERY Status: Acute Current Visit: Yes - Problem List Review Problem List Initiated/Reviewed/Updated: No - My Orders Last 24 Hours: My Active Orders 08/19/19 03:54 Vital Signs [RC] PER UNIT ROUTINE Resuscitation Status Routine 08/19/19 07:14 Patient Status [ADT] Routine Activity as Tolerated [RC] PFP Communication Order [RC] ASDIRECTED Notify Provider [RC] PFP Urinary Catheter Assessment [RC] ASDIRECTED Electronic Heart Tones Ext w TOCO [WOMSER] Routine Electronic Heart Tones Internal [WOMSER] Per Unit Routine 08/19/19 07:15 Lactated Ringers [Ringers, Lactated] 1,000 ml IV ASDIRECTED Oxytocin/Lactated Ringers [Pitocin in LR 10 Units/1,000 ML] 10 unit in 1,000 ml IV TITRATE Oxytocin/Lactated Ringers [Pitocin in LR 20 Units/1,000 ML] 20 unit in 1,000 ml IV .CONTINUOUS 08/19/19 07:37 RAPID PLASMA REAGIN,RPR [CHEM] Routine 08/19/19 09:00 miSOPROStoL [Cytotec] 50 mcg VAG Q4HR 08/19/19 12:57 Pharmacy to Dose - Gentamicin 1 dose .XX ASDIRECTED PRN 08/19/19 Breakfast Regular Diet [DIET] - Plan Plan:: Plan delivery Consent obtained for case needed an emergency.
[2019-08-19] MEDS ORDERED: Acetaminophen 325 MG Tab PO PRN (16:56)
[2019-08-19] MEDS ORDERED: Benzocaine/Menthol 20%-0.5% Spray 56 GM Canister TOP PRN (16:56)
[2019-08-19] MEDS: Docusate Sodium 100 MG Cap PO PRN (21:05)
[2019-08-19] MEDS: Ibuprofen 600 MG Tab PO PRN (21:05)
--- NOTE | 2019-08-20 10:20 | PCM.SN ---
- Free Text/Narrative Note: Chest clear cardiovascular examination regular sinus rhythm no abnormal breath sounds. Abdomen is soft uterus involuting normally. No heavy vaginal bleeding. No leg cramping. Patient doing well probably home tomorrow. No complaints or problems.
[2019-08-20] MEDS: Ibuprofen 600 MG Tab PO PRN ×2 (13:24→21:50)
[2019-08-20] MEDS: Witch Hazel Medicated Pads 40/Jar TOP PRN (13:27)
[2019-08-20] MEDS: Misoprostol 25 MCG (1/4 of 100 MCG) Tab VAG SCH (19:44)
[2019-08-20] MEDS: Docusate Sodium 100 MG Cap PO PRN (21:50)
[2019-08-21] MEDS: Ibuprofen 600 MG Tab PO PRN ×2 (03:00→08:02)
[2019-08-21] MEDS: Witch Hazel Medicated Pads 40/Jar TOP PRN (06:06)
--- NOTE | 2019-08-21 08:45 | PCM48HPAN ---
Post Anesthesia Note - EVALUATION WITHIN 48HRS OF ANESTHETIC Vital Signs in Normal Range: Yes Patient Participated in Evaluation: Yes Respiratory Function Stable: Yes Airway Patent: Yes Cardiovascular Function Stable: Yes Hydration Status Stable: Yes Pain Control Satisfactory: Yes Nausea and Vomiting Control Satisfactory: Yes Mental Status Recovered: Yes Vital Signs: Last Vital Signs Temp 97.9 F 08/21/19 03:00 Pulse 57 L 08/21/19 03:00 Resp 15 08/21/19 03:00 BP 127/66 08/21/19 03:00 Pulse Ox 99 08/21/19 03:00 - COMMENTS/OBSERVATIONS Free Text/Narrative:: Patient is on her day 2. Stated understanding about possible backaches following epidural anesthesia. Denies any soreness at this time. Explanation given about importance of avoiding back straining. Denies any headache or lightheadedness at this time.Comfortable now. Ambulating, no difficulty urinating.
[2019-08-21 09:35] VITALS: BP 122/74; PULSE 65
--- NOTE | 2019-08-21 09:59 | PCM.DCSUM1 ---
Discharge Summary - Hospital Course Free Text/Narrative:: [facility], [place], operated by [facility] LIVE L/D Delivery Note Patient Name: AMIE BORDEN Date of : 80 Patient Status: Inpatient Attending Provider: Freedom Cash Date: 08/19/19 16:47 Initialization Date: 08/19/19 16:47 L & D Note - General Info Date of Service: 08/19/19 Mother's Due Date: 08/24/19 - Delivery Note Labor: Spontaneous, Augmented by ARM, Augmented by Oxytocin Delivery Outcome: Livebirth (male liveborn Thursday08/19/2019 at 1629 ALLISON APGARs 8/9) Delivery Method: Spontaneous Vaginal Delivery-Single Infant Delivery Mode: Spontaneous Presentation: Left Occiput Anterior (ALLISON) Nuchal Cord: None Prep: Povidone-Iodine (Betadine Anesthesia Type: Epidural Amniotic Fluid Description: Meconium Stained Episiotomy Type: None Laceration: 2nd Degree Suture type: Other (monocryl) Suture size: 3-0 Placenta: Intact, Spontaneous ([id number]/19/2019 [facility]) Cord: 3 Vessels Provider: Freedom Cash Score 1 min: 8 Score 5 min: 9 - General Info Date of Service: 08/19/19 Functional Status: Reports: Pain Controlled - Review of Systems General: Reports: No Symptoms HEENT: Reports: No Symptoms Pulmonary: Reports: No Symptoms Cardiovascular: Reports: No Symptoms Gastrointestinal: Reports: No Symptoms Genitourinary: Reports: No Symptoms Musculoskeletal: Reports: No Symptoms Skin: Reports: No Symptoms Neurological: Reports: No Symptoms Psychiatric: Reports: No Symptoms - Patient Data Vitals - Most Recent: Last Vital Signs Temp 98.6 F 08/19/19 03:54 Pulse 76 08/19/19 11:01 Resp 16 08/19/19 03:54 BP 137/84 08/19/19 11:01 Pulse Ox 100 08/19/19 09:46 Weight - Most Recent: 200 lb 6.4 oz Lab Results Last 24 Hours: Laboratory Results - last 24 hr 08/19/19 08/19/19 Range/Units 07:37 07:37 WBC 10.01 (3.98-10.04) K/mm3 RBC 4.07 (3.98-5.22) M/mm3 Hgb 12.3 (11.2-15.7) gm/dl Hct 37.0 (34.1-44.9) % MCV 90.9 (79.4-94.8) fl MCH 30.2 (25.6-32.2) pg MCHC 33.2 (32.2-35.5) g/dl RDW Std Deviation 41.8 (36.4-46.3) fL Plt Count 319 (182-369) K/mm3 MPV 11.0 (9.4-12.3) fl Blood Type O POSITIVE Gel Antibody Screen Negative Med Orders - Current: Current Medications Albuterol (Proventil Neb Soln) 2.5 mg NEB ONETIME PRN PRN Reason: asthma Ephedrine Sulfate (Ephedrine Sulfate) 5 mg IVPUSH ASDIRECTED PRN PRN Reason: Hypotension Fentanyl (Sublimaze) 100 mcg EPIDUR Q3H PRN PRN Reason: Pain Last Admin: 08/19/19 13:24 Dose: 100 mcg Fentanyl/Bupivacaine HCl (Fentanyl/Bupivacaine/Ns 2 Mcg-0.125% 100 Ml) 100 ml EPIDUR ASDIRECTED JEANMARIE Last Admin: 08/19/19 09:51 Dose: 100 ml Gentamicin Sulfate (Pharmacy To Dose - Gentamicin) 1 dose .XX ASDIRECTED PRN PRN Reason: proplylactic Lactated Ringer's (Ringers, Lactated) 1,000 mls @ 125 mls/hr IV ASDIRECTED JEANMARIE Last Admin: 08/19/19 15:48 Dose: 125 mls/hr Oxytocin/Lactated Ringer's (Pitocin In Lr 10 Units/1,000 Ml) 10 unit in 1,000 mls @ 12 mls/hr IV TITRATE JEANMARIE; Protocol Last Titration: 08/19/19 15:42 Dose: 14 munits/min, 84 mls/hr Oxytocin/Lactated Ringer's (Pitocin In Lr 20 Units/1,000 Ml) 20 unit in 1,000 mls @ 500 mls/hr IV .CONTINUOUS JEANMARIE Phenylephrine HCl 1 mg/ Sodium (Chloride) 10.1 mls @ 1 mls/sec IV TITRATE JEANMARIE; Protocol Misoprostol (Cytotec) 50 mcg VAG Q4HR JEANMARIE Last Admin: 08/19/19 12:56 Dose: Not Given Ondansetron HCl (Zofran) 4 mg IVPUSH ONETIME PRN PRN Reason: Nausea/Vomiting Discontinued Medications Diphenhydramine HCl (Benadryl) 25 mg IVPUSH ONETIME ONE Stop: 08/19/19 12:58 Dextrose/Lactated Ringer's (Dextrose 5%-Lactated Ringers) 1,000 mls @ 250 mls/ hr IV ASDIRECTED [facility] Stop: 08/19/19 06:00 Dextrose/Lactated Ringer's (Dextrose 5%-Lactated Ringers) 1,000 mls @ 150 mls/ hr IV ASDIRECTED JEANMARIE Stop: 08/19/19 07:00 Clindamycin Phosphate 900 mg/ (Premix) 50 mls @ 100 mls/hr IV ONETIME ONE Stop: 08/19/19 13:26 Gentamicin Sulfate 455 mg/ (Sodium Chloride) 111.375 mls @ 111.375 mls/hr IV ONETIME ONE Stop: 08/19/19 14:14 - Exam General: Alert, Oriented HEENT: Pupils Equal, Mucous Membr. Moist/[place] Neck: Supple Lungs: Clear to Auscultation, Normal Respiratory Effort Cardiovascular: Regular Rate, Regular Rhythm GI/Abdominal Exam: Normal Bowel Sounds, Soft, Non-Tender (Female) Exam: Normal External Exam Extremities: Normal Inspection, Non-Tender, No Pedal Edema, Normal Capillary Refill Skin: Warm, Dry, Intact Psy/Mental Status: Alert, Normal Affect, Normal Mood - Problem List & Annotations (1) 39 weeks gestation of SNOMED Code(s): 44947288 Code(s): Z3A.39 - 39 WEEKS GESTATION OF Status: Acute Current Visit: Yes (2) Meconium in amniotic fluid affecting management of mother SNOMED Code(s): 70609840 Code(s): O36.8990 - MATERNAL CARE FOR OTH PROBLEMS, UNSP TRIMESTER, UNSP Status: Acute Current Visit: Yes Qualifiers: Fetus number: single or unspecified fetus (3) AMA (advanced maternal age) multigravida 35+ SNOMED Code(s): 175266149 Code(s): O09.529 - SUPERVISION OF ELDERLY MULTIGRAVIDA, UNSPECIFIED TRIMESTER Status: Acute Current Visit: Yes Qualifiers: Trimester: third trimester Qualified Code(s): O09.523 - Supervision of elderly multigravida, third trimester (4) Second degree perineal laceration during delivery SNOMED Code(s): 0506723 Code(s): O70.1 - SECOND DEGREE PERINEAL LACERATION DURING DELIVERY Status: Acute Current Visit: Yes - Problem List Review Problem List Initiated/Reviewed/Updated: No - My Orders Last 24 Hours: My Active Orders 08/19/19 03:54 Vital Signs [RC] PER UNIT ROUTINE Resuscitation Status Routine 08/19/19 07:14 Patient Status [ADT] Routine Activity as Tolerated [RC] PFP Communication Order [RC] ASDIRECTED Notify Provider [RC] PFP Urinary Catheter Assessment [RC] ASDIRECTED Electronic Heart Tones Ext w TOCO [WOMSER] Routine Electronic Heart Tones Internal [WOMSER] Per Unit Routine 08/19/19 07:15 Lactated Ringers [Ringers, Lactated] 1,000 ml IV ASDIRECTED Oxytocin/Lactated Ringers [Pitocin in LR 10 Units/1,000 ML] 10 unit in 1,000 ml IV TITRATE Oxytocin/Lactated Ringers [Pitocin in LR 20 Units/1,000 ML] 20 unit in 1,000 ml IV .CONTINUOUS 08/19/19 07:37 RAPID PLASMA REAGIN,RPR [CHEM] Routine 08/19/19 09:00 miSOPROStoL [Cytotec] 50 mcg VAG Q4HR 08/19/19 12:57 Pharmacy to Dose - Gentamicin 1 dose .XX ASDIRECTED PRN 08/19/19 Breakfast Regular Diet [DIET] - Plan Plan:: Plan delivery Consent obtained for case needed an emergency. HPI Initial Comments: [facility], [place], operated by [facility] LIVE L/D Delivery Note Patient Name: AMIE BORDEN Date of : 80 Patient Status: Inpatient Attending Provider: Freedom Cash Date: 08/19/19 16:47 Initialization Date: 08/19/19 16:47 L & D Note - General Info Date of Service: 08/19/19 Mother's Due Date: 08/24/19 - Delivery Note Labor: Spontaneous, Augmented by ARM, Augmented by Oxytocin Delivery Outcome: Livebirth (male liveborn Thursday08/19/2019 at 1629 [place] APGARs 8/9) Delivery Method: Spontaneous Vaginal Delivery-Single Infant Delivery Mode: Spontaneous Presentation: Left Occiput Anterior (ALLISON) Nuchal Cord: None Prep: Povidone-Iodine (Betadine Anesthesia Type: Epidural Amniotic Fluid Description: Meconium Stained Episiotomy Type: None Laceration: 2nd Degree Suture type: Other (monocryl) Suture size: 3-0 Placenta: Intact, Spontaneous (163108/19/2019 [facility]) Cord: 3 Vessels Provider: Freedom Cash Score 1 min: 8 Score 5 min: 9 - General Info Date of Service: 08/19/19 Functional Status: Reports: Pain Controlled - Review of Systems General: Reports: No Symptoms HEENT: Reports: No Symptoms Pulmonary: Reports: No Symptoms Cardiovascular: Reports: No Symptoms Gastrointestinal: Reports: No Symptoms Genitourinary: Reports: No Symptoms Musculoskeletal: Reports: No Symptoms Skin: Reports: No Symptoms Neurological: Reports: No Symptoms Psychiatric: Reports: No Symptoms - Patient Data Vitals - Most Recent: Last Vital Signs Temp 98.6 F 08/19/19 03:54 Pulse 76 08/19/19 11:01 Resp 16 08/19/19 03:54 BP 137/84 08/19/19 11:01 Pulse Ox 100 08/19/19 09:46 Weight - Most Recent: 200 lb 6.4 oz Lab Results Last 24 Hours: Laboratory Results - last 24 hr 08/19/19 08/19/19 Range/Units 07:37 07:37 WBC 10.01 (3.98-10.04) K/mm3 RBC 4.07 (3.98-5.22) M/mm3 Hgb 12.3 (11.2-15.7) gm/dl Hct 37.0 (34.1-44.9) % MCV 90.9 (79.4-94.8) fl MCH 30.2 (25.6-32.2) pg MCHC 33.2 (32.2-35.5) g/dl RDW Std Deviation 41.8 (36.4-46.3) fL Plt Count 319 (182-369) K/mm3 MPV 11.0 (9.4-12.3) fl Blood Type O POSITIVE Gel Antibody Screen Negative Med Orders - Current: Current Medications Albuterol (Proventil Neb Soln) 2.5 mg NEB ONETIME PRN PRN Reason: asthma Ephedrine Sulfate (Ephedrine Sulfate) 5 mg IVPUSH ASDIRECTED PRN PRN Reason: Hypotension Fentanyl (Sublimaze) 100 mcg EPIDUR Q3H PRN PRN Reason: Pain Last Admin: 08/19/19 13:24 Dose: 100 mcg Fentanyl/Bupivacaine HCl (Fentanyl/Bupivacaine/Ns 2 Mcg-0.125% 100 Ml) 100 ml EPIDUR ASDIRECTED JEANMARIE Last Admin: 08/19/19 09:51 Dose: 100 ml Gentamicin Sulfate (Pharmacy To Dose - Gentamicin) 1 dose .XX ASDIRECTED PRN PRN Reason: proplylactic Lactated Ringer's (Ringers, Lactated) 1,000 mls @ 125 mls/hr IV ASDIRECTED JEANMARIE Last Admin: 08/19/19 15:48 Dose: 125 mls/hr Oxytocin/Lactated Ringer's (Pitocin In Lr 10 Units/1,000 Ml) 10 unit in 1,000 mls @ 12 mls/hr IV TITRATE JEANMARIE; Protocol Last Titration: 08/19/19 15:42 Dose: 14 munits/min, 84 mls/hr Oxytocin/Lactated Ringer's (Pitocin In Lr 20 Units/1,000 Ml) 20 unit in 1,000 mls @ 500 mls/hr IV .CONTINUOUS JEANMARIE Phenylephrine HCl 1 mg/ Sodium (Chloride) 10.1 mls @ 1 mls/sec IV TITRATE JEANMARIE; Protocol Misoprostol (Cytotec) 50 mcg VAG Q4HR JEANMARIE Last Admin: 08/19/19 12:56 Dose: Not Given Ondansetron HCl (Zofran) 4 mg IVPUSH ONETIME PRN PRN Reason: Nausea/Vomiting Discontinued Medications Diphenhydramine HCl (Benadryl) 25 mg IVPUSH ONETIME ONE Stop: 08/19/19 12:58 Dextrose/Lactated Ringer's (Dextrose 5%-Lactated Ringers) 1,000 mls @ 250 mls/ hr IV ASDIRECTED JEANMARIE Stop: 08/19/19 06:00 Dextrose/Lactated Ringer's (Dextrose 5%-Lactated Ringers) 1,000 mls @ 150 mls/ hr IV ASDIRECTED JEANMARIE Stop: 08/19/19 07:00 Clindamycin Phosphate 900 mg/ (Premix) 50 mls @ 100 mls/hr IV ONETIME ONE Stop: 08/19/19 13:26 Gentamicin Sulfate 455 mg/ (Sodium Chloride) 111.375 mls @ 111.375 mls/hr IV ONETIME ONE Stop: 08/19/19 14:14 - Exam General: Alert, Oriented HEENT: Pupils Equal, Mucous Membr. Moist/[place] Neck: Supple Lungs: Clear to Auscultation, Normal Respiratory Effort Cardiovascular: Regular Rate, Regular Rhythm GI/Abdominal Exam: Normal Bowel Sounds, Soft, Non-Tender (Female) Exam: Normal External Exam Extremities: Normal Inspection, Non-Tender, No Pedal Edema, Normal Capillary Refill Skin: Warm, Dry, Intact Psy/Mental Status: Alert, Normal Affect, Normal Mood - Problem List & Annotations (1) 39 weeks gestation of SNOMED Code(s): 03650592 Code(s): Z3A.39 - 39 WEEKS GESTATION OF Status: Acute Current Visit: Yes (2) Meconium in amniotic fluid affecting management of mother SNOMED Code(s): 03952002 Code(s): O36.8990 - MATERNAL CARE FOR OTH PROBLEMS, UNSP TRIMESTER, UNSP Status: Acute Current Visit: Yes Qualifiers: Fetus number: single or unspecified fetus (3) AMA (advanced maternal age) multigravida 35+ SNOMED Code(s): 597059458 Code(s): O09.529 - SUPERVISION OF ELDERLY MULTIGRAVIDA, UNSPECIFIED TRIMESTER Status: Acute Current Visit: Yes Qualifiers: Trimester: third trimester Qualified Code(s): O09.523 - Supervision of elderly multigravida, third trimester (4) Second degree perineal laceration during delivery SNOMED Code(s): 6827361 Code(s): O70.1 - SECOND DEGREE PERINEAL LACERATION DURING DELIVERY Status: Acute Current Visit: Yes - Problem List Review Problem List Initiated/Reviewed/Updated: No - My Orders Last 24 Hours: My Active Orders 08/19/19 03:54 Vital Signs [RC] PER UNIT ROUTINE Resuscitation Status Routine 08/19/19 07:14 Patient Status [ADT] Routine Activity as Tolerated [RC] PFP Communication Order [RC] ASDIRECTED Notify Provider [RC] PFP Urinary Catheter Assessment [RC] ASDIRECTED Electronic Heart Tones Ext w TOCO [WOMSER] Routine Electronic Heart Tones Internal [WOMSER] Per Unit Routine 08/19/19 07:15 Lactated Ringers [Ringers, Lactated] 1,000 ml IV ASDIRECTED Oxytocin/Lactated Ringers [Pitocin in LR 10 Units/1,000 ML] 10 unit in 1,000 ml IV TITRATE Oxytocin/Lactated Ringers [Pitocin in LR 20 Units/1,000 ML] 20 unit in 1,000 ml IV .CONTINUOUS 08/19/19 07:37 RAPID PLASMA REAGIN,RPR [CHEM] Routine 08/19/19 09:00 miSOPROStoL [Cytotec] 50 mcg VAG Q4HR 08/19/19 12:57 Pharmacy to Dose - Gentamicin 1 dose .XX ASDIRECTED PRN 08/19/19 Breakfast Regular Diet [DIET] - Plan Plan:: Plan delivery Consent obtained for case needed an emergency. Brief History: [facility], [place], operated by [facility] LIVE . L/D Delivery Note. Patient Name: AMIE BORDEN [facility] Record Number: [id number]. Date of : Patient Status: Inpatient. Attending Provider: Freedom Cash Number: [id number]. Date: 08/19/19 16:47Initialization Date: 08/19/19 16:47. L & D Note. - General Info. Date of Service: 08/19/19. Mother's Due Date: 08/24/19. - Delivery Note. Labor: Spontaneous, Augmented by ARM, Augmented by Oxytocin. Delivery Outcome: Livebirth (male liveborn Thursday08/19/2019 at 1629 ALL[place] APGARs 8/9). Infant Delivery Method: Spontaneous Vaginal Delivery-Single. Delivery Mode: Spontaneous. Presentation: Left Occiput Anterior ( ALLISON). Nuchal Cord: None. Prep: Povidone-Iodine (Betadine. Anesthesia Type: Epidural. Amniotic Fluid Description: Meconium Stained. Episiotomy Type: None. Laceration: 2nd Degree. Suture type: Other (monocryl). Suture size: 3- 0. Placenta: Intact, Spontaneous (1632 Thursday08/19/2019 [facility]). Cord: 3 Vessels. Provider: Freedom Cash. Score 1 min: 8. Score 5 min: 9. - General Info. Date of Service: 08/19/19. Functional Status : Reports: Pain Controlled. - Review of Systems. General: Reports: No Symptoms. HEENT: Reports: No Symptoms. Pulmonary: Reports: No Symptoms. Cardiovascular: Reports: No Symptoms. Gastrointestinal: Reports: No Symptoms. Genitourinary: Reports: No Symptoms. Musculoskeletal: Reports: No Symptoms. Skin: Reports: No Symptoms. Neurological: Reports: No Symptoms. Psychiatric: Reports: No Symptoms. - Patient Data. Vitals - Most Recent: Last Vital Signs. Temp 98.6 F 08/19/19 03:54. Pulse 76 08/19/19 11:01. Resp 16 03:54. BP 137/84 08/19/19 11:01. Pulse Ox 100 08/19/19 09:46. Weight - Most Recent: 200 lb 6.4 oz. Lab Results Last 24 Hours: Laboratory Results - last 24 hr. 08/19/2001Range/Units. 07:3707:37. WBC 10.01 (3.98-10.04) K/mm3. RBC 4.07 (3.98-5.22) M/mm3. Hgb 12.3 (11.2-15.7) gm/dl. Hct 37.0 ( 34.1-44.9) %. MCV 90.9 (79.4-94.8) fl. MCH 30.2 (25.6-32.2) pg. MCHC 33.2 (32.2-35.5) g/dl. RDW Std Deviation 41.8 (36.4-46.3) fL. Plt Count 319 (182- 369) K/mm3. MPV 11.0 (9.4-12.3) fl. Blood Type O POSITIVE. Gel Antibody Screen Negative. Med Orders - Current: Current Medications. Albuterol ( Proventil Neb Soln) 2.5 mg NEB ONETIME PRN. PRN Reason: asthma. Ephedrine Sulfate (Ephedrine Sulfate) 5 mg IVPUSH ASDIRECTED PRN. PRN Reason: Hypotension. Fentanyl (Sublimaze) 100 mcg EPIDUR Q3H PRN. PRN Reason: Pain. Last Admin: 08/19/19 13:24 Dose: 100 mcg. Fentanyl/Bupivacaine HCl (Fentanyl/ Bupivacaine/Ns 2 Mcg-0.125% 100 Ml) 100 ml EPIDUR ASDIRECTED JEANMARIE. Last Admin: 08/19/19 09:51 Dose: 100 ml. Gentamicin Sulfate (Pharmacy To Dose - Gentamicin ) 1 dose .XX ASDIRECTED PRN. PRN Reason: proplylactic. Lactated Ringer's ( Ringers, Lactated) 1,000 mls @ 125 mls/hr IV ASDIRECTED JEANMARIE. Last Admin: 08/19 15:48 Dose: 125 mls/hr. Oxytocin/Lactated Ringer's (Pitocin In Lr 10 Units /1,000 Ml) 10 unit in 1,000 mls @ 12 mls/hr IV TITRATE JEANMARIE; Protocol. Last Titration: 08/19/19 15:42 Dose: 14 munits/min, 84 mls/hr. Oxytocin/Lactated Ringer's (Pitocin In Lr 20 Units/1,000 Ml) 20 unit in 1,000 mls @ 500 mls/hr IV .CONTINUOUS JEANMARIE. Phenylephrine HCl 1 mg/ Sodium (Chloride) 10.1 mls @ 1 mls /sec IV TITRATE JEANMARIE; Protocol. Misoprostol (Cytotec) 50 mcg VAG Q4HR JEANMARIE. Last Admin: 08/19/19 12:56 Dose: Not Given. Ondansetron HCl (Zofran) 4 mg IVPUSH ONETIME PRN. PRN Reason: Nausea/Vomiting. Discontinued Medications. Diphenhydramine HCl (Benadryl) 25 mg IVPUSH ONETIME ONE. Stop: 08/19/19 12: 58. Dextrose/Lactated Ringer's (Dextrose 5%-Lactated Ringers) 1,000 mls @ 250 mls/hr IV ASDIRECTED JEANMARIE. Stop: 08/19/19 06:00. Dextrose/Lactated Ringer's ( Dextrose 5%-Lactated Ringers) 1,000 mls @ 150 mls/hr IV ASDIRECTED JEANMARIE. Stop: 08/19/19 07:00. Clindamycin Phosphate 900 mg/ (Premix) 50 mls @ 100 mls/hr IV ONETIME ONE. Stop: 08/19/19 13:26. Gentamicin Sulfate 455 mg/ (Sodium Chloride ) 111.375 mls @ 111.375 mls/hr IV ONETIME ONE. Stop: 08/19/19 14:14. - Exam. General: Alert, Oriented. HEENT: Pupils Equal, Mucous Membr. Moist/[place]. Neck: Supple. Lungs: Clear to Auscultation, Normal Respiratory Effort. Cardiovascular: Regular Rate, Regular Rhythm. GI/Abdominal Exam: Normal Bowel Sounds, Soft, Non-Tender. (Female) Exam: Normal External Exam. Extremities : Normal Inspection, Non-Tender, No Pedal Edema, Normal Capillary Refill. Skin : Warm, Dry, Intact. Psy/Mental Status: Alert, Normal Affect, Normal Mood. - Problem List & Annotations. (1) 39 weeks gestation of . SNOMED Code(s ): 57689236. Code(s): Z3A.39 - 39 WEEKS GESTATION OF Status: Acute Current Visit: Yes. (2) Meconium in amniotic fluid affecting management of mother. SNOMED Code(s): 46885474. Code(s): O36.8990 - MATERNAL CARE FOR OTH PROBLEMS, UNSP TRIMESTER, UNSP Status: Acute Current Visit: Yes. Qualifiers: Fetus number: single or unspecified fetus. (3) AMA (advanced maternal age) multigravida 35+. SNOMED Code(s): 381367033. Code(s): O09.529 - SUPERVISION OF ELDERLY MULTIGRAVIDA, UNSPECIFIED TRIMESTER Status: Acute Current Visit: Yes. Qualifiers: Trimester: third trimester Qualified Code(s) : O09.523 - Supervision of elderly multigravida, third trimester. (4) Second degree perineal laceration during delivery. SNOMED Code(s): 6775377. Code(s): O70.1 - SECOND DEGREE PERINEAL LACERATION DURING DELIVERY Status: Acute Current Visit: Yes. - Problem List Review. Problem List Initiated/Reviewed/ Updated: No. - My Orders. Last 24 Hours: My Active Orders. 08/19/19 03:54. Vital Signs [RC] PER UNIT ROUTINE. Resuscitation Status Routine. 08/19/19 07: 14. Patient Status [ADT] Routine. Activity as Tolerated [RC] PFP. Communication Order [RC] ASDIRECTED. Notify Provider [RC] PFP. Urinary Catheter Assessment [RC] ASDIRECTED. Electronic Heart Tones Ext w TOCO [ WOMSER] Routine. Electronic Heart Tones Internal [WOMSER] Per Unit Routine. 08/19/19 07:15. Lactated Ringers [Ringers, Lactated] 1,000 ml IV ASDIRECTED. Oxytocin/Lactated Ringers [Pitocin in LR 10 Units/1,000 ML] 10 unit in 1,000 ml IV TITRATE. Oxytocin/Lactated Ringers [Pitocin in LR 20 Units/ 1,000 ML] 20 unit in 1,000 ml IV .CONTINUOUS. 08/19/19 07:37. RAPID PLASMA REAGIN,RPR [CHEM] Routine. 08/19/19 09:00. miSOPROStoL [Cytotec] 50 mcg VAG Q4HR. 08/19/19 12:57. Pharmacy to Dose - Gentamicin 1 dose .XX ASDIRECTED PRN. 08/19/19 Breakfast. Regular Diet [DIET]. - Plan. Plan:: Plan delivery. Consent obtained for case needed an emergency. Diagnosis: Stroke: No - Discharge Data Discharge Date: 08/21/19 Discharge Disposition: Home, Self-Care 01 Condition: Good - Referral to Home Health Primary Care Physician: Jazmyne Sheikh PA-C - Discharge Diagnosis/Problem(s) (1) 39 weeks gestation of SNOMED Code(s): 99416739 ICD Code: Z3A.39 - 39 WEEKS GESTATION OF Status: Acute Current Visit: Yes (2) Meconium in amniotic fluid affecting management of mother SNOMED Code(s): 00139788 ICD Code: O36.8990 - MATERNAL CARE FOR OTH PROBLEMS, UNSP TRIMESTER, UNSP Status: Acute Current Visit: Yes Qualifiers: Fetus number: single or unspecified fetus (3) AMA (advanced maternal age) multigravida 35+ SNOMED Code(s): 690276725 ICD Code: O09.529 - SUPERVISION OF ELDERLY MULTIGRAVIDA, UNSPECIFIED TRIMESTER Status: Acute Current Visit: Yes Qualifiers: Trimester: third trimester Qualified Code(s): O09.523 - Supervision of elderly multigravida, third trimester (4) Second degree perineal laceration during delivery SNOMED Code(s): 6132723 ICD Code: O70.1 - SECOND DEGREE PERINEAL LACERATION DURING DELIVERY Status : Acute Current Visit: Yes - Patient Summary/Data Complications: none Consults: none Hospital Course: uneventful - Patient Instructions Diet: Usual Diet as Tolerated Driving: Do Not Drive ([id number]) Showering/Bathing: May Shower Notify Provider of: Fever, Increased Pain, Swelling and Redness, Drainage, Nausea and/or Vomiting - Discharge Plan *PRESCRIPTION DRUG MONITORING PROGRAM REVIEWED*: Not Applicable *COPY OF PRESCRIPTION DRUG MONITORING REPORT IN PATIENT PAUL: Not Applicable Home Medications: Home Meds Albuterol [Ventolin HFA] 2 puff INH Q4H PRN 01/17/15 [History] Budesonide/Formoterol [Symbicort 160-4.5 MCG] 1 puff PO BID PRN 01/17/15 [ History] Pnv No.95/Ferrous Fum/Folic AC [ Multivitamin Tablet] 1 tab PO DAILY 04/15 [History] Acetaminophen [Tylenol] 650 mg PO Q6H #50 tablet 12/08/17 [Rx] Acetaminophen [Tylenol] 650 mg PO Q6H PRN tablet 08/21/19 [Rx] Docusate Sodium [Colace] 100 mg PO BID PRN cap 08/21/19 [Rx] Ibuprofen [Motrin] 600 mg PO Q6H PRN tablet 08/21/19 [Rx] Patient Handouts: Baby Blues, Home Care Instructions for Mom Referrals: Freedom Cash MD [Physician] - (to make an appointment to see me 09/06/2019 ) - Discharge Summary/Plan Comment DC Time >30 min.: No - Patient Data Vitals - Most Recent: Last Vital Signs Temp 97.3 F 08/21/19 09:09 Pulse 65 08/21/19 09:09 Resp 14 08/21/19 09:09 BP 122/74 08/21/19 09:09 Pulse Ox 100 08/21/19 09:09 Weight - Most Recent: 200 lb 6.4 oz Lab Results - Last 24 hrs: Laboratory Results - last 24 hr 08/19/19 Range/Units 07:37 RPR Non-reactive (NONREACTIVE) Med Orders - Current: Current Medications Acetaminophen (Tylenol) 650 mg PO Q4H PRN PRN Reason: mild pain or fever Last Admin: 08/20/19 15:23 Dose: 650 mg Benzocaine/Menthol (Dermoplast Pain Relief [place]) 0 gm TOP ASDIRECTED PRN PRN Reason: Perineal Comfort Measure Last Admin: 08/20/19 13:27 Dose: 1 spray Docusate Sodium (Colace) 100 mg PO BID PRN PRN Reason: Constipation Last Admin: 08/20/19 21:50 Dose: 100 mg Ibuprofen (Motrin) 600 mg PO Q4H PRN PRN Reason: Mild pain or fever Last Admin: 08/21/19 08:02 Dose: 600 mg (Albuterol 2 Puff) (Inhaler) 0 each INH Q4H PRN PRN Reason: Wheezing Budesonide/Formoterol 160/4.5 Mcg Inhaler 0 each PO BID PRN PRN Reason: Wheezing Witch Shara (Tucks) 1 pad TOP ASDIRECTED PRN PRN Reason: Perineal Comfort Measure Last Admin: 08/21/19 06:06 Dose: 1 tub Discontinued Medications Albuterol (Proventil Neb Soln) 2.5 mg NEB ONETIME PRN PRN Reason: asthma Diphenhydramine HCl (Benadryl) 25 mg IVPUSH ONETIME ONE Stop: 08/19/19 12:58 Last Admin: 08/19/19 13:10 Dose: 25 mg Ephedrine Sulfate (Ephedrine Sulfate) 5 mg IVPUSH ASDIRECTED PRN PRN Reason: Hypotension Fentanyl (Sublimaze) 100 mcg EPIDUR Q3H PRN PRN Reason: Pain Last Admin: 08/19/19 13:24 Dose: 100 mcg Fentanyl/Bupivacaine HCl (Fentanyl/Bupivacaine/Ns 2 Mcg-0.125% 100 Ml) 100 ml EPIDUR ASDIRECTED JEANMARIE Last Admin: 08/19/19 09:51 Dose: 100 ml Gentamicin Sulfate (Pharmacy To Dose - Gentamicin) 1 dose .XX ASDIRECTED PRN PRN Reason: proplylactic Dextrose/Lactated Ringer's (Dextrose 5%-Lactated Ringers) 1,000 mls @ 250 mls/ hr IV ASDIRECTED JEANMARIE Stop: 08/19/19 06:00 Dextrose/Lactated Ringer's (Dextrose 5%-Lactated Ringers) 1,000 mls @ 150 mls/ hr IV ASDIRECTED JEANMARIE Stop: 08/19/19 07:00 Lactated Ringer's (Ringers, Lactated) 1,000 mls @ 125 mls/hr IV ASDIRECTED JEANMARIE Last Admin: 08/19/19 15:48 Dose: 125 mls/hr Oxytocin/Lactated Ringer's (Pitocin In Lr 10 Units/1,000 Ml) 10 unit in 1,000 mls @ 12 mls/hr IV TITRATE JEANMARIE; Protocol Last Titration: 08/19/19 15:42 Dose: 14 munits/min, 84 mls/hr Oxytocin/Lactated Ringer's (Pitocin In Lr 20 Units/1,000 Ml) 20 unit in 1,000 mls @ 500 mls/hr IV .CONTINUOUS JEANMARIE Phenylephrine HCl 1 mg/ Sodium (Chloride) 10.1 mls @ 1 mls/sec IV TITRATE JEANMARIE; Protocol Clindamycin Phosphate 900 mg/ (Premix) 50 mls @ 100 mls/hr IV ONETIME ONE Stop: 08/19/19 13:26 Last Admin: 08/20/19 19:45 Dose: Not Given Gentamicin Sulfate 455 mg/ (Sodium Chloride) 111.375 mls @ 111.375 mls/hr IV ONETIME ONE Stop: 08/19/19 14:14 Last Admin: 08/20/19 19:44 Dose: Not Given Misoprostol (Cytotec) 50 mcg VAG [id number] JEANMARIE Last Admin: 08/20/19 19:44 Dose: Not Given Ondansetron HCl (Zofran) 4 mg IVPUSH ONETIME PRN PRN Reason: Nausea/Vomiting
== END 2019-08-21 12:00 | disposition home or self-care (01) | DRG 560 ==
LOC: JD.US 03:00 → JD.OB 03:08 → JD.US 07:14 → JD.OB 07:14 → OBSVTOIN 16:29 → JD.OB 16:30
PROVIDERS: ADMIT Obstetrics & Gynecology; ATTEND Obstetrics & Gynecology
PROC: 10E0XZZ Delivery of Products of Conception, External Approach (ICD-10-PCS; principal; 2019-08-19)
PROC: 10907ZC Drainage of Amniotic Fluid, Therapeutic from Products of Conception, Via Natural or Artificial Opening (ICD-10-PCS; 2019-08-19)
PROC: 0KQM0ZZ Repair Perineum Muscle, Open Approach (ICD-10-PCS; 2019-08-19)
PROC: 3E0R3BZ Introduction of Anesthetic Agent into Spinal Canal, Percutaneous Approach (ICD-10-PCS; 2019-08-19)
DX: O77.0 Labor and delivery complicated by meconium in amniotic fluid (principal); J45.909 Unspecified asthma, uncomplicated; Z96.649 Presence of unspecified artificial hip joint; O99.52 Diseases of the respiratory system complicating childbirth; O70.1 Second degree perineal laceration during delivery; Z3A.39 39 weeks gestation of pregnancy; Z37.0 Single live birth; Z88.1 Allergy status to other antibiotic agents; Z88.0 Allergy status to penicillin; Z79.51 Long term (current) use of inhaled steroids; Z79.899 Other long term (current) drug therapy
CPT/HCPCS: 36415; 51702; 59025; 59409; 76816; 76819; 76819-26; 85025; 85027; 86592; 86850; 86900; 86901; A9270-GY; J1200; J2590; J3010; J7120

== ENCOUNTER 2021-08-15 16:51 | Emergency (ER) | payer BC ==
[2021-08-15 17:11] VITALS: BP 137/89; PULSE 80
== END 2021-08-15 20:41 | disposition home or self-care (01) ==
LOC: JD.ED 16:51
DX: O20.0 Threatened abortion (principal); Z3A.09 9 weeks gestation of pregnancy; Z88.0 Allergy status to penicillin; Z88.1 Allergy status to other antibiotic agents
CPT/HCPCS: 36415; 76817; 76817-26; 80053; 81001; 84702; 85025; 86900; 86901; 99284; 99284-25

== ENCOUNTER 2021-08-18 20:58 | Day surgery (SDC) | payer BC ==
[2021-08-18] MEDS ORDERED: Ondansetron 4 MG/2 ML SDV IVPUSH ONE (21:29)
[2021-08-18] MEDS ORDERED: Sodium Chloride 0.9% 10 ML Syringe FLUSH PRN (21:29)
[2021-08-18] MEDS ORDERED: Sodium Chloride 0.9% 1,000 ML IV SCH (21:30)
[2021-08-18] MEDS ORDERED: Potassium Chloride 10 MEQ in Premix Bag 1 BAG IV SCH (23:30)
[2021-08-18] MEDS ORDERED: Doxycycline 100 MG Cap PO ONE ×2 (23:37→23:45)
[2021-08-18] MEDS ORDERED: Doxycycline 100 MG Cap ONE (23:45)
[2021-08-18] MEDS ORDERED: Propofol 200 MG/20 ML SDV ONE (23:49)
[2021-08-18] MEDS ORDERED: fentaNYL 250 MCG/5 ML SDV ONE (23:49)
[2021-08-18] MEDS ORDERED: Midazolam 1 MG/ML 2 ML SDV ONE (23:49)
[2021-08-18] MEDS ORDERED: Rocuronium 50 MG/5 ML Vial ONE (23:50)
[2021-08-18] MEDS ORDERED: Ondansetron 4 MG/2 ML SDV ONE (23:50)
[2021-08-18] MEDS ORDERED: diphenhydrAMINE 50 MG/ML SDV ONE (23:50)
[2021-08-18] MEDS ORDERED: Lidocaine 1% 5 ML VIAL ONE (23:50)
[2021-08-18] MEDS ORDERED: Dexamethasone 4 MG/ML 5 ML MDV ONE (23:50)
[2021-08-18] MEDS ORDERED: Succinylcholine/Sod PF 100 MG/5 ML SYRINGE IV ONE (23:54)
[2021-08-19] MEDS ORDERED: Lactated Ringers 1,000 ML ONE (00:19)
[2021-08-19] MEDS ORDERED: Methylergonovine 0.2 MG/1 ML Amp ONE (00:27)
[2021-08-19] MEDS ORDERED: Ketorolac 30 MG/ML SDV ONE (00:39)
[2021-08-19] MEDS ORDERED: fentaNYL 100 MCG/2 ML SDV IVPUSH PRN (00:53)
[2021-08-19] MEDS ORDERED: HYDROmorphone 0.5 MG/0.5 ML Syringe IVPUSH PRN (00:53)
[2021-08-19] MEDS ORDERED: Ondansetron 4 MG/2 ML SDV IVPUSH PRN (00:53)
[2021-08-19 02:17] VITALS: BP 124/64; PULSE 67
== END 2021-08-19 02:15 | disposition home or self-care (01) ==
LOC: JD.ED 20:58 → JD.SDS 23:06 → UNDOADMOB 08-19 01:34 → JD.MS 08-19 01:34 → UNDODISOB 08-19 02:15 → JD.SDS 08-19 02:15
PROVIDERS: ATTEND Obstetrics & Gynecology
DX: O03.1 Delayed or excessive hemorrhage following incomplete spontaneous abortion (principal); J45.909 Unspecified asthma, uncomplicated; F41.9 Anxiety disorder, unspecified; F32.A Depression, unspecified; Z87.891 Personal history of nicotine dependence; Z01.812 Encounter for preprocedural laboratory examination; Z88.0 Allergy status to penicillin; Z88.8 Allergy status to other drugs, medicaments and biological substances; Z79.899 Other long term (current) drug therapy; Z20.822 Contact with and (suspected) exposure to COVID-19
CPT/HCPCS: 01965; 36415; 76817; 76817-26; 80048; 80053; 84702; 85025; 86850; 86900; 86901; 96374; 99140; 99285; 99285-25; A9270-GY; J0330; J1100; J1200; J1885; J2210; J2250; J2405; J2704; J3010; J3480; J3490; J7030; J7120; U0002

== ENCOUNTER 2022-11-13 15:25 | Inpatient (IN) | payer BC ==
[2022-11-13] MEDS ORDERED: Nalbuphine 10 MG/0.5 ML Syringe IVPUSH PRN (16:40)
[2022-11-13] MEDS ORDERED: Sodium Chloride 0.9% 10 ML Syringe FLUSH PRN (16:40)
[2022-11-13] MEDS ORDERED: Ondansetron 4 MG/2 ML SDV IVPUSH PRN (16:40)
[2022-11-13] MEDS ORDERED: Oxytocin/Lactated Ringers 10 UNIT/1,000 ML BAG IV SCH (16:45)
[2022-11-13] MEDS: Lactated Ringers 1,000 ML IV SCH (17:12)
[2022-11-13] MEDS: Oxytocin/Lactated Ringers 10 UNIT/1,000 ML BAG IV SCH (17:19)
[2022-11-13 17:24] LABS: HEMATOCRIT 34.7 % (34.1-44.9); HEMOGLOBIN 11.3 gm/dl (11.2-15.7); MEAN CORPUSCULAR HGB CONC 32.6 g/dl (32.2-35.5); MEAN CORPUSCULAR VOLUME 89.2 fl (79.4-94.8); MEAN PLATELET VOLUME 11.8 fl (9.4-12.3); PLATELET COUNT,PLT 262 K/mm3 (182-369); RED BLOOD CELL COUNT 3.89 M/mm3 (3.98-5.22)
[2022-11-13] MEDS ORDERED: Sodium Chloride 0.9% 10 ML Syringe FLUSH SCH (21:00)
[2022-11-14] MEDS ORDERED: Ropivacaine 0.2% PF 2 MG/ML 20 ML SDV ONE
[2022-11-14 00:28] LABS: CREATININE 0.8 mg/dL (0.55-1.02); EST CRCL DRUG DOSING (CG) 95.74 mL/min
[2022-11-14] MEDS: Lactated Ringers 1,000 ML IV SCH ×2 (02:29→05:06)
[2022-11-14] MEDS ORDERED: ePHEDrine 50 MG/ML SDV IVPUSH PRN (02:47)
[2022-11-14] MEDS ORDERED: diphenhydrAMINE 50 MG/ML SDV IVPUSH PRN (02:47)
[2022-11-14] MEDS ORDERED: Bupivacaine/fentaNYL/NS 100 ML Bag EPIDUR PRN (02:47)
[2022-11-14] MEDS ORDERED: fentaNYL 100 MCG/2 ML SDV EPIDUR PRN (02:47)
[2022-11-14 04:11] LABS: CREATININE,URINE RAND 151.5 mg/dL (30.0-125.0); PROTEIN CREATININE RATIO,URINE 218.5 mg/g (0-149); PROTEIN,URINE RANDOM 33.1 mg/dL (0.0-11.8)
[2022-11-14] MEDS: Oxytocin/Lactated Ringers 10 UNIT/1,000 ML BAG IV SCH (05:06)
[2022-11-14] MEDS ORDERED: Ropivacaine 200 MG in Premix Bag 1 BAG EPIDUR SCH (06:00)
[2022-11-14] MEDS ORDERED: Acetaminophen 325 MG Tab PO PRN (10:15)
[2022-11-14] MEDS ORDERED: Witch Hazel Medicated Pads 40/Jar TOP PRN (10:15)
[2022-11-14] MEDS ORDERED: Benzocaine/Menthol 20%-0.5% Spray 78 GM Cannister TOP PRN (10:15)
[2022-11-14] MEDS: Sertraline 50 MG Tab PO SCH (10:50)
[2022-11-14] MEDS: QUEtiapine 25 MG Tab PO SCH (10:50)
[2022-11-14] MEDS: buPROPion 150 MG Tab.ER PO SCH (10:51)
[2022-11-14] MEDS: Ibuprofen 600 MG Tab PO PRN (17:26)
[2022-11-15 08:36] VITALS: BP 119/89; PULSE 67
[2022-11-15] MEDS: QUEtiapine 25 MG Tab PO SCH (10:59)
[2022-11-15] MEDS: Sertraline 50 MG Tab PO SCH (10:59)
[2022-11-15] MEDS: buPROPion 150 MG Tab.ER PO SCH (10:59)
[2022-11-15] MEDS: Ibuprofen 600 MG Tab PO PRN (12:05)
== END 2022-11-15 14:22 | disposition home or self-care (01) | DRG 560 ==
LOC: JD.OBCHECK 15:25 → JD.OB 15:31 → JD.OBCHECK 16:41 → JD.OB 16:41 → OBSVTOIN 11-14 06:26 → JD.OB 11-14 06:42
PROVIDERS: ADMIT Obstetrics & Gynecology; ATTEND Obstetrics & Gynecology
PROC: 10E0XZZ Delivery of Products of Conception, External Approach (ICD-10-PCS; principal; 2022-11-14)
PROC: 10907ZC Drainage of Amniotic Fluid, Therapeutic from Products of Conception, Via Natural or Artificial Opening (ICD-10-PCS; 2022-11-14)
PROC: 3E033VJ Introduction of Other Hormone into Peripheral Vein, Percutaneous Approach (ICD-10-PCS; 2022-11-14)
PROC: 0KQM0ZZ Repair Perineum Muscle, Open Approach (ICD-10-PCS; 2022-11-14)
PROC: 3E0R3BZ Introduction of Anesthetic Agent into Spinal Canal, Percutaneous Approach (ICD-10-PCS; 2022-11-14)
PROC: 00HU33Z Insertion of Infusion Device into Spinal Canal, Percutaneous Approach (ICD-10-PCS; 2022-11-14)
DX: O99.52 Diseases of the respiratory system complicating childbirth (principal); J45.909 Unspecified asthma, uncomplicated; Z37.0 Single live birth; Z3A.37 37 weeks gestation of pregnancy; O99.344 Other mental disorders complicating childbirth; F31.9 Bipolar disorder, unspecified; F41.9 Anxiety disorder, unspecified; O76 Abnormality in fetal heart rate and rhythm complicating labor and delivery; O70.1 Second degree perineal laceration during delivery; Z79.899 Other long term (current) drug therapy
CPT/HCPCS: 36415; 51701; 51702; 59025; 59409; 82565; 82570; 84156; 84450; 84460; 85027; 86592; 86850; 86900; 86901; A9270-GY; J2590; J2795; J3490; J7120

== ENCOUNTER 2023-12-07 03:33 | Emergency (ER) | payer BC ==
[2023-12-07 03:46] VITALS: BP 108/78; PULSE 64
[2023-12-07 04:13] LABS: BASOPHILS ABSOLUTE AUTO 0.1 K/mm3 (0.0-0.2); BASOPHILS PERCENT AUTO 0.9 % (0.0-1.0); EOSINOPHILS ABSOLUTE AUTO 0.3 K/mm3 (0.0-0.4); EOSINOPHILS PERCENT AUTO 5.9 % (0.0-6.0); HEMATOCRIT 36.2 % (37.0-47.0); HEMOGLOBIN 11.9 gm/dl (12.0-16.0); IMMATURE GRAN ABSOLUTE AUTO 0.01 K/mm3 (0.00-0.05); IMMATURE GRAN PERCENT AUTO 0.2 % (0.0-0.4); LYMPHOCYTES ABSOLUTE AUTO 1.3 K/mm3 (1.0-4.8); MEAN CORPUSCULAR HEMOGLOBIN 29.5 pg (28.0-32.0); MEAN CORPUSCULAR HGB CONC 32.9 g/dl (32.0-36.0); MEAN CORPUSCULAR VOLUME 89.6 fl (83.0-99.0); MONOCYTES ABSOLUTE AUTO 0.6 K/mm3 (0.0-0.8); MONOCYTES PERCENT AUTO 12.1 % (0.0-8.0); NEUTROPHILS PERCENT AUTO 55.9 % (41.0-71.0); PLATELET COUNT,PLT 292 K/mm3 (150-400); RED BLOOD CELL COUNT 4.04 M/mm3 (4.10-5.30); WHITE BLOOD CELL COUNT,WBC 5.28 K/mm3 (3.9-11.3)
[2023-12-07] MEDS: Levofloxacin/Dextrose 5%-Water 500 MG in Premix Bag 1 BAG IV ONE (04:20)
[2023-12-07] MEDS: Sodium Chloride 0.9% 10 ML Syringe FLUSH PRN (04:21)
[2023-12-07 04:33] LABS: A/G RATIO 1.1 (1-2); ALBUMIN 3.4 g/dl (3.4-5.0); ANION GAP 10.1 (5-15); BILIRUBIN TOTAL 0.2 mg/dL (0.2-1.0); BUN/CREATININE RATIO 7.8 (14-18); C-REACTIVE PROTEIN 0.05 mg/dL (<0.30); CALCIUM 8.2 mg/dL (8.5-10.1); CREATININE 0.9 mg/dL (0.55-1.02); EST CRCL DRUG DOSING (CG) 84.23 mL/min; POTASSIUM,K 4.1 mEq/L (3.5-5.1); PROTEIN TOTAL,TP 6.6 g/dl (6.4-8.2)
== END 2023-12-07 05:31 | disposition home or self-care (01) ==
LOC: JD.ED 03:33
DX: L03.011 Cellulitis of right finger (principal); L03.113 Cellulitis of right upper limb; J45.909 Unspecified asthma, uncomplicated; Z79.899 Other long term (current) drug therapy; Z88.0 Allergy status to penicillin; Z88.1 Allergy status to other antibiotic agents; Z79.51 Long term (current) use of inhaled steroids
CPT/HCPCS: 36415; 80053; 83735; 85025; 86140; 96365; 99283; J1956; J3490

== ENCOUNTER 2024-06-21 06:18 | Emergency (ER) | payer BC ==
[2024-06-21] MEDS ORDERED: Sodium Chloride 0.9% 10 ML Syringe FLUSH PRN (06:39)
[2024-06-21] MEDS: Sodium Chloride 0.9% 1,000 ML IV ONE (06:46)
[2024-06-21] MEDS: Ondansetron 4 MG/2 ML SDV IVPUSH ONE (06:46)
[2024-06-21 07:01] LABS: BASOPHILS PERCENT AUTO 0.2 % (0.0-1.0); HEMATOCRIT 39.9 % (37.0-47.0); IMMATURE GRAN ABSOLUTE AUTO 0.03 K/mm3 (0.00-0.05); IMMATURE GRAN PERCENT AUTO 0.3 % (0.0-0.4); LYMPHOCYTES ABSOLUTE AUTO 0.2 K/mm3 (1.0-4.8); LYMPHOCYTES PERCENT AUTO 2.3 % (24.0-44.0); MEAN CORPUSCULAR HGB CONC 32.6 g/dl (32.0-36.0); MEAN CORPUSCULAR VOLUME 92.1 fl (83.0-99.0); MEAN PLATELET VOLUME 11.4 fl (9.4-12.3); MONOCYTES ABSOLUTE AUTO 0.5 K/mm3 (0.0-0.8); MONOCYTES PERCENT AUTO 4.5 % (0.0-8.0); NEUTROPHILS ABSOLUTE AUTO 9.2 K/mm3 (1.8-7.7); NEUTROPHILS PERCENT AUTO 92.7 % (41.0-71.0); PLATELET COUNT,PLT 310 K/mm3 (150-400); RED BLOOD CELL COUNT 4.33 M/mm3 (4.10-5.30); WHITE BLOOD CELL COUNT,WBC 9.95 K/mm3 (3.9-11.3)
[2024-06-21 07:03] LABS: ALBUMIN 3.7 g/dl (3.4-5.0); ANION GAP 15.5 (5-15); BILIRUBIN TOTAL 0.7 mg/dL (0.2-1.0); CALCIUM 8.5 mg/dL (8.5-10.1); CREATININE 0.8 mg/dL (0.55-1.02); EST CRCL DRUG DOSING (CG) 84.41 mL/min; MAGNESIUM 2.1 mg/dL (1.8-2.4); POTASSIUM,K 3.5 mEq/L (3.5-5.1); PROTEIN TOTAL,TP 7.4 g/dl (6.4-8.2)
[2024-06-21 08:08] LABS: SLIDE REVIEW ABNORMAL SMEAR
[2024-06-21 08:46] VITALS: BP 124/75; PULSE 80
== END 2024-06-21 08:19 | disposition home or self-care (01) ==
LOC: JD.ED 06:18
DX: A08.4 Viral intestinal infection, unspecified (principal); J45.909 Unspecified asthma, uncomplicated; Z96.649 Presence of unspecified artificial hip joint; Z88.0 Allergy status to penicillin; Z88.1 Allergy status to other antibiotic agents; Z79.51 Long term (current) use of inhaled steroids; Z79.899 Other long term (current) drug therapy
CPT/HCPCS: 36415; 80053; 83735; 84703; 85025; 96361; 96374; 99284-25; J2405; J7030